=== PATIENT | female | born 1985 | race Caucasian/White ===

== ENCOUNTER → 2017-08-24 | Outpatient (CLI) | payer OTHER | END | disposition home or self-care (01) | LOC: C.PAPS 09:04 | PROVIDERS: ATTEND Obstetrics & Gynecology | DX: Z12.4 Encounter for screening for malignant neoplasm of cervix (principal) ==

== ENCOUNTER → 2017-09-06 | Outpatient (CLI) | payer OTHER ==
--- NOTE | 2017-09-06 15:17 | MAMMOGRAPHY REPORT ---
UNILATERAL LEFT DIGITAL DIAGNOSTIC MAMMOGRAM TOMOSYNTHESIS WITH CAD AND TARGETED LEFT ULTRASOUND: 09/06 CLINICAL HISTORY: The patient reports intermittent diffuse left breast pain for over one year. She a lso reports intermittent clear/milky spontaneous non-bloody left nipple discharge. She denies any pa lpable lumps or other complaints. TECHNIQUE: Breast tomosynthesis in addition to standard 2D mammography was performed. Current study was also evaluated with a Computer Aided Detection (CAD) system. Left CC and MLO 2-D and tomosynthes is images were obtained. COMPARISON: No prior exams were available for comparison. BREAST COMPOSITION: There are scattered areas of fibroglandular density in the left breast. FINDINGS: There are no suspicious masses, calcifications, or areas of architectural distortion noted in the left breast. A square marker whitney the area of most prominent pain pointed out by the patient in the left superior breast; no suspicious masses or other suspicious mammographic abnormalities are seen in this region. Targeted ultrasound was performed of the left subareolar breast. Sonographically normal tissue is se en in this region, without evidence of an intraductal mass or other suspicious sonographic abnormalit y. IMPRESSION: ACR BI-RADS CATEGORY 2: BENIGN, TARGETED ULTRASOUND ACR BI-RADS CATEGORY 2: BENIGN No suspicious mammographic or sonographic abnormality to explain intermittent left breast pain and le ft nipple discharge. There is no mammographic or targeted sonographic evidence of malignancy. Recom mend clinical follow-up for left breast symptoms, and recommend routine bilateral screening mammogram s starting at age of 40 unless otherwise clinically indicated. The patient has been verbally notified of the results. Approximately 10% of breast cancers are not detected with mammography. A negative mammographic report should not delay biopsy if a clinically suggestive mass is present. Kayleigh Hwang M.D. /:09/06/2017 10:06:58 Tube Pusher: Sadie Weldon, [facility] letter sent: Normal 07/10 BI-RADS Code: ACR BI-RADS Category 2: Benign Ultrasound BI-RADS: ACR BI-RADS Category 2: Benign
== END | disposition home or self-care (01) ==
LOC: C.MAMM 09:23
PROVIDERS: ATTEND Obstetrics & Gynecology
DX: N64.4 Mastodynia (principal); N64.52 Nipple discharge

== ENCOUNTER 2018-08-29 17:33 | Inpatient (IN) ==
[2018-08-29 19:25] LABS: Basophils # (auto) 0.01 K/uL (0-0.2); Basophils % (auto) 0.2 %; Eosinophils % (auto) 1.5 %; Hematocrit (blood only) 43.5 % (37-47); Hemoglobin 14.6 g/dL (12.0-16.0); Immature Granulocytes # (auto) 0.03 K/uL (0.00-0.02); Immature Granulocytes % (auto) 0.5 %; Lymphocytes # (auto) 2.82 K/uL (1.2-3.4); Lymphocytes % (auto) 42.4 %; Mean Corpuscular Hgb Conc 33.6 g/dL (32-36); Mean Corpuscular Volume 88.8 fL (80-100); Mean Platelet Volume 12.6 fL (7.4-10.4); Monocytes # (auto) 0.56 K/uL (0.11-0.59); Monocytes % (auto) 8.4 %; Neutrophils # (auto) 3.13 K/uL (1.4-6.5); Platelet Count 195 K/uL (130-400); RDW Coefficient of Variation 13.5 % (11.5-14.5); RDW Standard Deviation 43.9 fL (36.4-46.3); White Blood Count 6.65 K/uL (4.8-10.8)
--- NOTE | 2018-08-29 19:40 | Emergency Department Note ---
Entered by Johnathan Newell acting as a scribe for Flakito Brown MD ED Provider Note CHIEF COMPLAINT: Bradycardia HISTORY OF PRESENT ILLNESS: Patient is a 33 year old female who presents herself to ER with complaints of heart irregularity which has been going on for past few days. She has been hospitalized in [place] and [facility] for a work up for her heart and GI issues. She had nausea and vomiting but that has seemed to be controlled. She notes that prior to her hospitalization in [place] she had a heart rate that jumped up to 170, suspected as an SVT, and was given an IV medication to correct this. She is unsure of the name. She was placed on metoprolol but then this was discontinued. Within the last month she has had bilateral arm and leg numbness. She states to be complaining of bilateral chest pressure just under her clavicle. She denies any sweating and she states she is on Zofran. She also states she lost 40 pounds in the last six weeks. She states going from love to tachycardic heart rate. Prior to her discharge from [facility] earlier this week she was having episodes of bradycardia stating she would go down into the 40s. She does note that her heart rate went up above 130 last night. Pt denies LOC, visual changes, neck pain, chest pain, recent nausea, vomiting, abdominal pain, back pain, melena, hematochezia, urinary symptoms, numbness, weakness, lymphadenopathy, rash, or other complaints. REVIEW OF SYSTEMS: See HPI for pertinent positives and negatives. A total of ten systems were reviewed and were otherwise negative. PMHx/PSHx: SVT SOCIAL HISTORY: Patient lives at home. PHYSICAL EXAM: GENERAL: Awake, alert, well-appearing, in no distress HENT: Normocephalic, atraumatic. Oropharynx unremarkable. EYES: PERRL. Normal conjunctiva. Sclera non-icteric. NECK: Inspection normal. Non-tender. Supple. No nuchal rigidity. FROM. No masses. RESPIRATORY: Clear to auscultation. No wheezes. No rales. Normal respiratory effort. CARDIAC: Normal rate. Normal rhythm. No murmurs. No rubs. Extremities warm and well perfused. Pulses equal. No JVD. GI: Soft, non-distended. No tenderness to palpation. No rebound or guarding. No masses. RECTAL: Deferred. MUSCULOSKELETAL: Atraumatic. Chest examination reveals no tenderness. The back is symmetrical on inspection without obvious abnormality. There is no CVA tenderness to palpation. No joint edema. LOWER EXTREMITIES: Calves are equal size bilaterally and non-tender. No edema. No discoloration. NEURO: Normal sensorium. No sensory or motor deficits noted. SKIN: No rash or jaundice noted. EMERGENCY DEPARTMENT COURSE: 1750: Past medical records reviewed. The patient was evaluated in room A12, and a complete history and physical examination were performed. 2011: I reevaluated the patient and updated the patient on the treatment plan. 2016: I spoke with FEDERICA Faulkner, he agreed with the plan to admit the patient. I also administered the patient Tylenol. 2052: I spoke with the patient and they verbalized agreement to the treatment. The patient will be admiteed under Dr. Suarez's care, FEDERICA. MEDICAL DECISION MAKING: Prior records/ancillary studies reviewed. The patient has had an equivocal Lyme titer. Western blot was unable to be performed. Triage Nursing notes reviewed and agree them. Additional history obtained from the family. The patient's history was concerning for recent SVT, bradycardia and tachycardia. Differential diagnosis: Etiologies such as electrolyte abnormality, cardiac dysrhythmia, thyroid dysfunction, pulmonary embolism, infection, gastrointestinal, as well as others were entertained. Physical examination: As above. The patient was in a normal rhythm on my physical examination however she was noted to be moderately tachycardic upon arrival. ER treatment provided: Cardiac monitoring. IV and oral potassium. On reassessment the patient felt better. Diagnostic interpretation by me: The electrocardiogram was negative for pathologic change. The labs revealed unremarkable CBC. LFTs were elevated. The patient has a normal troponin. Her chemistry panel revealed moderate hypokalemia. Lyme titers have been normal but equivocal. Confirmation Western blot pending. The patient has moderate hypokalemia. She is having issues where she notes tachycardia and bradycardia. She denies any vomiting or diarrhea. She has elevated LFTs. I discussed further management in the hospital. The patient was in agreement. I gave my usual and customary discussion regarding this issue. Consultation: A consultation was placed with the [facility] hospitalist. The case was discussed and diagnostics were reviewed. The patient was evaluated in the ER for further treatment. IMPRESSION: Palpitations Hypokalemia Elevated LFTs Abnormal Lyme titer PLAN: Admitted The scribe's documentation has been prepared under my direction and personally reviewed by me in its entirety. I confirm that the note above accurately reflects all work, treatment, procedures, and medical decision making performed by me. Impression & Plan Palpitation, Acute hypokalemia, Elevated LFTs Past Med/Surg History Medical History Heart palpitations (Inactive) Lyme disease (Inactive) Tachycardia Family History Other Colon cancer Hodgkin lymphoma Lung cancer No significant family history Social History marital status: Current Living Situation: Family Other Information That Helps Us Care for You: No Feels Safe at Home: Yes Safety Concerns: Feels Safe At This Time Smoking Status: Never smoker Hx Alcohol Use: No Hx Substance Use: No Beliefs That Will Affect Care: None Communication Ability: Effective Results & Data Vital Signs Vital Signs - 24 hr 08/30/18 15:20 08/30/18 15:23 08/30/18 19:24 Temperature 36.7 C 36.7 C Temperature Source Oral Oral Pulse Rate 74 Pulse Rate [Finger] 73 78 Respiratory Rate 18 20 Blood Pressure [Left Arm] 100/67 116/83 Blood Pressure [Right Arm] Blood Pressure Mean [Left Arm] 78 94 Blood Pressure Mean [Right Arm] Blood Pressure Position [Left Arm] Lying Lying Blood Pressure Position [Right Arm] Pulse Oximetry 96 97 Pulse Oximetry [Middle Finger] Oxygen Delivery Method Room Air Room Air Oxygen Delivery Method [Middle Finger] 08/30/18 23:15 08/31/18 04:05 08/31/18 06:56 Temperature 36.5 C 36.4 C L 36.6 C Temperature Source Oral Oral Oral Pulse Rate Pulse Rate [Finger] 70 54 L 72 Respiratory Rate 16 16 16 Blood Pressure [Left Arm] 94/59 L 104/69 Blood Pressure [Right Arm] 103/70 Blood Pressure Mean [Left Arm] 70 80 Blood Pressure Mean [Right Arm] 81 Blood Pressure Position [Left Arm] Lying Blood Pressure Position [Right Arm] Lying Pulse Oximetry 97 97 97 Pulse Oximetry [Middle Finger] Oxygen Delivery Method Room Air Room Air Room Air Oxygen Delivery Method [Middle Finger] 08/31/18 10:00 08/31/18 11:49 Temperature 37.2 C Temperature Source Oral Pulse Rate 50 L Pulse Rate [Finger] 68 Respiratory Rate 18 Blood Pressure [Left Arm] 117/77 Blood Pressure [Right Arm] Blood Pressure Mean [Left Arm] 90 Blood Pressure Mean [Right Arm] Blood Pressure Position [Left Arm] Lying Blood Pressure Position [Right Arm] Pulse Oximetry 96 Pulse Oximetry [Middle Finger] 97 Oxygen Delivery Method Room Air Oxygen Delivery Method [Middle Finger] Room Air Home Medications Current Medication List: was personally reviewed by me Laboratory Data Attestation: I reviewed the patient's lab results. Result diagrams: 08/31/18 07:24 08/31/18 07:24 Lab Results 08/29/18 08/29/18 08/29/18 Range/Units 18:57 18:57 18:57 WBC 6.65 (4.8-10.8) K/uL RBC 4.90 (4.2-5.4) M/uL Hgb 14.6 (12.0-16.0) g/dL Hct 43.5 (37-47) % MCV 88.8 (80-100) fL MCH 29.8 (25-34) pg MCHC 33.6 (32-36) g/dL RDW Std Deviation 43.9 (36.4-46.3) fL RDW Coeff of Corazon 13.5 (11.5-14.5) % Plt Count 195 (130-400) K/uL MPV 12.6 H (7.4-10.4) fL Immature Gran % (Auto) 0.5 % Neut % (Auto) 47.0 % Lymph % (Auto) 42.4 % Slope % (Auto) 8.4 % Eos % (Auto) 1.5 % Baso % (Auto) 0.2 % Immature Gran # (Auto) 0.03 H (0.00-0.02) K/uL Neut # (Auto) 3.13 (1.4-6.5) K/uL Lymph # (Auto) 2.82 (1.2-3.4) K/uL Slope # (Auto) 0.56 (0.11-0.59) K/uL Eos # (Auto) 0.10 (0-0.5) K/uL Baso # (Auto) 0.01 (0-0.2) K/uL ESR (0-21) mm/hr PT (9.0-12.0) Seconds INR (0.9-1.1) APTT (21.0-31.0) Seconds PTT Ratio Sodium 137 (136-145) mmol/L Potassium 2.6 L (3.5-5.1) mmol/L Chloride 97 L (98-107) mmol/L Carbon Dioxide 30 (21-32) mmol/L Anion Gap 10.0 (3-11) BUN 8 (7-18) mg/dl Creatinine 0.56 L (0.6-1.2) mg/dl Est Cr Clr Drug Dosing 151.1 ml/min Est GFR ( Amer) 144.0 Est GFR (Non-Af Amer) 124.2 BUN/Creatinine Ratio 13.6 (10-20) Glucose 84 (70-99) mg/dl Calcium 8.8 (8.5-10.1) mg/dl Magnesium 1.8 (1.8-2.4) mg/dl Total Bilirubin 0.9 (0.2-1) mg/dl AST 112 H (15-37) U/L ALT 226 H (12-78) U/L Alkaline Phosphatase 84 (45-117) U/L Troponin I < 0.015 (0-0.045) ng/ml Total Protein 7.0 (6.4-8.2) gm/dl Albumin 3.3 L (3.4-5.0) gm/dl Globulin 3.7 (2.5-4.0) gm/dl Albumin/Globulin Ratio 0.9 (0.9-2) TSH 1.100 (0.300-4.500) uIu/ml Cortisol AM Sample (4.3-22.4) mcg/dl Lyme Disease IgG Ab Negative (Negative) Lyme Disease IgM Ab Equivocal H (Negative) Hep Bs Antigen (Neg) Hepatitis C Antibody (Neg) Monoscreen (Negative) 08/29/18 08/30/18 08/30/18 Range/Units 18:57 05:34 05:34 WBC (4.8-10.8) K/uL RBC (4.2-5.4) M/uL Hgb (12.0-16.0) g/dL Hct (37-47) % MCV (80-100) fL MCH (25-34) pg MCHC (32-36) g/dL RDW Std Deviation (36.4-46.3) fL RDW Coeff of Corazon (11.5-14.5) % Plt Count (130-400) K/uL MPV (7.4-10.4) fL Immature Gran % (Auto) % Neut % (Auto) % Lymph % (Auto) % Slope % (Auto) % Eos % (Auto) % Baso % (Auto) % Immature Gran # (Auto) (0.00-0.02) K/uL Neut # (Auto) (1.4-6.5) K/uL Lymph # (Auto) (1.2-3.4) K/uL Slope # (Auto) (0.11-0.59) K/uL Eos # (Auto) (0-0.5) K/uL Baso # (Auto) (0-0.2) K/uL ESR 19 (0-21) mm/hr PT (9.0-12.0) Seconds INR (0.9-1.1) APTT (21.0-31.0) Seconds PTT Ratio Sodium (136-145) mmol/L Potassium (3.5-5.1) mmol/L Chloride (98-107) mmol/L Carbon Dioxide (21-32) mmol/L Anion Gap (3-11) BUN (7-18) mg/dl Creatinine (0.6-1.2) mg/dl Est Cr Clr Drug Dosing ml/min Est GFR ( Amer) Est GFR (Non-Af Amer) BUN/Creatinine Ratio (10-20) Glucose (70-99) mg/dl Calcium (8.5-10.1) mg/dl Magnesium (1.8-2.4) mg/dl Total Bilirubin (0.2-1) mg/dl AST (15-37) U/L ALT (12-78) U/L Alkaline Phosphatase (45-117) U/L Troponin I (0-0.045) ng/ml Total Protein (6.4-8.2) gm/dl Albumin (3.4-5.0) gm/dl Globulin (2.5-4.0) gm/dl Albumin/Globulin Ratio (0.9-2) TSH (0.300-4.500) uIu/ml Cortisol AM Sample (4.3-22.4) mcg/dl Lyme Disease IgG Ab (Negative) Lyme Disease IgM Ab (Negative) Hep Bs Antigen Neg (Neg) Hepatitis C Antibody Neg (Neg) Monoscreen Negative (Negative) 08/30/18 08/30/18 08/30/18 Range/Units 05:34 05:34 05:34 WBC 5.53 (4.8-10.8) K/uL RBC 4.85 (4.2-5.4) M/uL Hgb 14.5 (12.0-16.0) g/dL Hct 43.8 (37-47) % MCV 90.3 (80-100) fL MCH 29.9 (25-34) pg MCHC 33.1 (32-36) g/dL RDW Std Deviation 44.8 (36.4-46.3) fL RDW Coeff of Corazon 13.7 (11.5-14.5) % Plt Count 185 (130-400) K/uL MPV 12.5 H (7.4-10.4) fL Immature Gran % (Auto) 0.7 % Neut % (Auto) 31.1 % Lymph % (Auto) 56.8 % Slope % (Auto) 7.2 % Eos % (Auto) 4.0 % Baso % (Auto) 0.2 % Immature Gran # (Auto) 0.04 H (0.00-0.02) K/uL Neut # (Auto) 1.72 (1.4-6.5) K/uL Lymph # (Auto) 3.14 (1.2-3.4) K/uL Slope # (Auto) 0.40 (0.11-0.59) K/uL Eos # (Auto) 0.22 (0-0.5) K/uL Baso # (Auto) 0.01 (0-0.2) K/uL ESR (0-21) mm/hr PT 11.4 (9.0-12.0) Seconds INR 1.1 (0.9-1.1) APTT 23.5 (21.0-31.0) Seconds PTT Ratio 0.9 Sodium 140 (136-145) mmol/L Potassium 3.4 L D (3.5-5.1) mmol/L Chloride 102 (98-107) mmol/L Carbon Dioxide 32 (21-32) mmol/L Anion Gap 6.0 (3-11) BUN 6 L (7-18) mg/dl Creatinine 0.57 L (0.6-1.2) mg/dl Est Cr Clr Drug Dosing 155.9 ml/min Est GFR ( Amer) 143.2 Est GFR (Non-Af Amer) 123.5 BUN/Creatinine Ratio 10.6 (10-20) Glucose 76 (70-99) mg/dl Calcium 8.2 L (8.5-10.1) mg/dl Magnesium (1.8-2.4) mg/dl Total Bilirubin 1.0 (0.2-1) mg/dl AST 103 H (15-37) U/L ALT 221 H (12-78) U/L Alkaline Phosphatase 77 (45-117) U/L Troponin I (0-0.045) ng/ml Total Protein 6.4 (6.4-8.2) gm/dl Albumin 3.0 L (3.4-5.0) gm/dl Globulin 3.4 (2.5-4.0) gm/dl Albumin/Globulin Ratio 0.9 (0.9-2) TSH (0.300-4.500) uIu/ml Cortisol AM Sample (4.3-22.4) mcg/dl Lyme Disease IgG Ab (Negative) Lyme Disease IgM Ab (Negative) Hep Bs Antigen (Neg) Hepatitis C Antibody (Neg) Monoscreen (Negative) 08/31/18 08/31/18 08/31/18 Range/Units 07:24 07:24 07:24 WBC 5.37 (4.8-10.8) K/uL RBC 4.42 (4.2-5.4) M/uL Hgb 13.1 (12.0-16.0) g/dL Hct 40.5 (37-47) % MCV 91.6 (80-100) fL MCH 29.6 (25-34) pg MCHC 32.3 (32-36) g/dL RDW Std Deviation 47.1 H (36.4-46.3) fL RDW Coeff of Corazon 14.2 (11.5-14.5) % Plt Count 167 (130-400) K/uL MPV 11.7 H (7.4-10.4) fL Immature Gran % (Auto) 0.9 % Neut % (Auto) 37.6 % Lymph % (Auto) 44.3 % Slope % (Auto) 11.2 % Eos % (Auto) 5.8 % Baso % (Auto) 0.2 % Immature Gran # (Auto) 0.05 H (0.00-0.02) K/uL Neut # (Auto) 2.02 (1.4-6.5) K/uL Lymph # (Auto) 2.38 (1.2-3.4) K/uL Slope # (Auto) 0.60 H (0.11-0.59) K/uL Eos # (Auto) 0.31 (0-0.5) K/uL Baso # (Auto) 0.01 (0-0.2) K/uL ESR (0-21) mm/hr PT 10.9 (9.0-12.0) Seconds INR 1.1 (0.9-1.1) APTT (21.0-31.0) Seconds PTT Ratio Sodium 142 (136-145) mmol/L Potassium 4.0 D (3.5-5.1) mmol/L Chloride 110 H (98-107) mmol/L Carbon Dioxide 28 (21-32) mmol/L Anion Gap 4.0 (3-11) BUN 6 L (7-18) mg/dl Creatinine 0.63 (0.6-1.2) mg/dl Est Cr Clr Drug Dosing 142.1 ml/min Est GFR ( Amer) 138.5 Est GFR (Non-Af Amer) 119.5 BUN/Creatinine Ratio 9.1 L (10-20) Glucose 91 (70-99) mg/dl Calcium 7.9 L (8.5-10.1) mg/dl Magnesium 2.2 (1.8-2.4) mg/dl Total Bilirubin 0.5 D (0.2-1) mg/dl AST 52 H (15-37) U/L ALT 165 H (12-78) U/L Alkaline Phosphatase 67 (45-117) U/L Troponin I (0-0.045) ng/ml Total Protein 5.7 L (6.4-8.2) gm/dl Albumin 2.8 L (3.4-5.0) gm/dl Globulin 2.9 (2.5-4.0) gm/dl Albumin/Globulin Ratio 1.0 (0.9-2) TSH (0.300-4.500) uIu/ml Cortisol AM Sample (4.3-22.4) mcg/dl Lyme Disease IgG Ab (Negative) Lyme Disease IgM Ab (Negative) Hep Bs Antigen (Neg) Hepatitis C Antibody (Neg) Monoscreen (Negative) 08/31/18 Range/Units 07:24 WBC (4.8-10.8) K/uL RBC (4.2-5.4) M/uL Hgb (12.0-16.0) g/dL Hct (37-47) % MCV (80-100) fL MCH (25-34) pg MCHC (32-36) g/dL RDW Std Deviation (36.4-46.3) fL RDW Coeff of Corazon (11.5-14.5) % Plt Count (130-400) K/uL MPV (7.4-10.4) fL Immature Gran % (Auto) % Neut % (Auto) % Lymph % (Auto) % Slope % (Auto) % Eos % (Auto) % Baso % (Auto) % Immature Gran # (Auto) (0.00-0.02) K/uL Neut # (Auto) (1.4-6.5) K/uL Lymph # (Auto) (1.2-3.4) K/uL Slope # (Auto) (0.11-0.59) K/uL Eos # (Auto) (0-0.5) K/uL Baso # (Auto) (0-0.2) K/uL ESR (0-21) mm/hr PT (9.0-12.0) Seconds INR (0.9-1.1) APTT (21.0-31.0) Seconds PTT Ratio Sodium (136-145) mmol/L Potassium (3.5-5.1) mmol/L Chloride (98-107) mmol/L Carbon Dioxide (21-32) mmol/L Anion Gap (3-11) BUN (7-18) mg/dl Creatinine (0.6-1.2) mg/dl Est Cr Clr Drug Dosing ml/min Est GFR ( Amer) Est GFR (Non-Af Amer) BUN/Creatinine Ratio (10-20) Glucose (70-99) mg/dl Calcium (8.5-10.1) mg/dl Magnesium (1.8-2.4) mg/dl Total Bilirubin (0.2-1) mg/dl AST (15-37) U/L ALT (12-78) U/L Alkaline Phosphatase (45-117) U/L Troponin I (0-0.045) ng/ml Total Protein (6.4-8.2) gm/dl Albumin (3.4-5.0) gm/dl Globulin (2.5-4.0) gm/dl Albumin/Globulin Ratio (0.9-2) TSH (0.300-4.500) uIu/ml Cortisol AM Sample 16.06 (4.3-22.4) mcg/dl Lyme Disease IgG Ab (Negative) Lyme Disease IgM Ab (Negative) Hep Bs Antigen (Neg) Hepatitis C Antibody (Neg) Monoscreen (Negative) Administered Medications Potassium Chloride/Sodium Chloride (Normal Saline W/20 Meq Kcl) 20 meq in 1, 000 mls @ 100 mls/hr IV .Q10H PRECIOUS Stop: 09/29/18 00:03 Last Admin: 08/31/18 08:06 Dose: 100 mls/hr Infusion: 08/31/18 08:06 Dose: 100 mls/hr Admin: 08/30/18 22:16 Dose: 100 mls/hr Infusion: 08/30/18 22:16 Dose: 100 mls/hr Admin: 08/30/18 13:25 Dose: 100 mls/hr Infusion: 08/30/18 11:57 Dose: 100 mls/hr Admin: 08/30/18 01:57 Dose: 100 mls/hr Mirtazapine (Remeron) 15 mg PO HS PRECIOUS Stop: 09/29/18 20:59 Last Admin: 08/30/18 20:08 Dose: Not Given Multivitamins (Multivitamin Tab) 1 tab PO DAILY PRECIOUS Stop: 09/29/18 08:59 Last Admin: 08/31/18 08:07 Dose: 1 tab Admin: 08/30/18 08:50 Dose: 1 tab Ondansetron HCl (Zofran) 4 mg IV Q6H PRN PRN Reason: NAUSEA/VOMITING Stop: 09/29/18 00:03 Last Admin: 08/30/18 18:22 Dose: 4 mg Admin: 08/30/18 11:58 Dose: 4 mg Pantoprazole Sodium (Protonix) 40 mg PO BID PRECIOUS Stop: 09/29/18 00:03 Last Admin: 08/31/18 08:07 Dose: 40 mg Admin: 08/30/18 20:06 Dose: 40 mg Admin: 08/30/18 08:50 Dose: 40 mg Admin: 08/30/18 00:58 Dose: 40 mg Polyethylene Glycol (Miralax Powder Packet) 17 gm PO DAILY PRN PRN Reason: Constipation Stop: 09/29/18 16:34 Last Admin: 08/30/18 16:57 Dose: 17 gm Discontinued Medications Acetaminophen (Tylenol) 1,000 mg PO NOW STA Stop: 08/29/18 20:18 Last Admin: 08/29/18 20:22 Dose: 1,000 mg Docusate Sodium (Colace) 100 mg PO NOW ONE Stop: 08/30/18 19:47 Last Admin: 08/30/18 20:07 Dose: 100 mg Potassium Chloride (K Eusebio / Wtr) 10 meq in 100 mls @ 100 mls/hr IV ONE ONE Stop: 08/29/18 21:10 Last Infusion: 08/29/18 21:37 Dose: Admin: 08/29/18 20:22 Dose: 100 mls/hr Potassium Chloride (K Eusebio / Wtr) 10 meq in 100 mls @ 100 mls/hr IV Q1H PRECIOUS Stop: 08/30/18 04:16 Last Infusion: 08/30/18 05:03 Dose: 0 mls/hr Admin: 08/30/18 03:59 Dose: 100 mls/hr Infusion: 08/30/18 03:57 Dose: 100 mls/hr Admin: 08/30/18 02:57 Dose: 100 mls/hr Infusion: 08/30/18 02:57 Dose: 100 mls/hr Admin: 08/30/18 01:57 Dose: 100 mls/hr Infusion: 08/30/18 01:54 Dose: 100 mls/hr Admin: 08/30/18 00:54 Dose: 100 mls/hr Magnesium Sulfate/Dextrose (Magnesium Sulfate / D5w) 1 gm in 100 mls @ 100 mls/ hr IV Q1H PRECIOUS Stop: 08/30/18 02:18 Last Infusion: 08/30/18 02:57 Dose: 0 mls/hr Admin: 08/30/18 01:57 Dose: 100 mls/hr Infusion: 08/30/18 01:54 Dose: 100 mls/hr Admin: 08/30/18 00:54 Dose: 100 mls/hr Potassium Chloride (Klor-Con M20) 20 meq PO NOW STA Stop: 08/29/18 20:12 Last Admin: 08/29/18 20:22 Dose: 20 meq ECG Data Attestation: I personally reviewed and interpreted this ECG as follows: Indication: bradycardia Rate (beats per minute): 84 Rhythm: other (sinus arrhythmia) Findings: + other (non specific st ); no PAC, no PVC and no ST elevation Blood Pressure Blood Pressure Findings: Low blood pressure Blood Pressure Disposition: further management by hospitalist Discharge Plan Visit Data *Final* Discharge Date/Time: 08/29/18 23:49 Chief Complaint: Bradycardia Stated Complaint: LOW HEART RATE, TINGLING-REFERRED ED Provider: Flakito Brown Discharge Problem: Palpitation, Acute hypokalemia, Elevated LFTs Patient Disposition: Admitted As Inpatient Discharge Instructions Interventions: ED Discharge Assessment Last Done: 08/29/18 23:49 The scribe's documentation has been prepared under my direction and personally reviewed by me in its entirety. I confirm that the note above accurately reflects all work, treatment, procedures, and medical decision making performed by me.
[2018-08-29 19:50] LABS: Alanine Aminotransferase 226 U/L (12-78); Albumin Level 3.3 gm/dl (3.4-5.0); Aspartate Aminotransferase 112 U/L (15-37); BUN Creatinine Ratio 13.6 (10-20); Blood Urea Nitrogen 8 mg/dl (7-18); Calcium 8.8 mg/dl (8.5-10.1); Carbon Dioxide 30 mmol/L (21-32); Chloride 97 mmol/L (98-107); Creatinine Clr Calc Pharmacy 151.1 ml/min; Est GFR (Non-African American) 124.2; Glucose 84 mg/dl (70-99); Magnesium 1.8 mg/dl (1.8-2.4); Potassium 2.6 mmol/L (3.5-5.1); Sodium 137 mmol/L (136-145)
[2018-08-29 20:00] LABS: Albumin Globulin Ratio 0.9 (0.9-2); Alkaline Phosphatase 84 U/L (45-117); Bilirubin,Total 0.9 mg/dl (0.2-1); Globulin 3.7 gm/dl (2.5-4.0); Troponin I < 0.015 ng/ml (0-0.045)
[2018-08-29] MEDS ORDERED: POTASSIUM CHLORIDE / WTR 10 MEQ/100 ML PLCT IV ONE (20:11)
[2018-08-29] MEDS ORDERED: POTASSIUM CHLORIDE 20 MEQ TABCR PO STA (20:11)
[2018-08-29] MEDS ORDERED: ACETAMINOPHEN 500 MG TAB PO STA (20:17)
[2018-08-29 20:20] LABS: Lyme Ab IgG w/WB Rflx Negative (Negative)
[2018-08-29 20:21] LABS: Lyme Ab IgM w/WB Rflx Equivocal (Negative)
--- NOTE | 2018-08-29 23:09 | History & Physical Report ---
Date of Service August 29, 2018 Assessment & Plan (1) PSVT (paroxysmal supraventricular tachycardia): She had a reported maintained HR of 170 at rest, received an unknown medication from EMS to return to normal. The patient will be admitted to telemetry for serial cardiac enzymes, serial EKG's, cardiac rhythm monitoring and a 2-D echocardiogram with Dopplers. K2.6, Mg 1.8 upon admission. Give mag sulfate 2 grams IV. Give KCl 10 MEQ riders x 5. NSS + KCl 20 MEQ at 100 mls/hr. Repeat CMP and mag levels in the am. EKG with nonspecific inferolateral changes Consult cardiology. Need to get records from [facility] and hospital in [place]. Present on Admission?: Yes (2) Elevated LFTs: AST 112, ALT 226, that were normal on 08/27. Order acute hepatitis profiles, CTD , and other viral studies. Repeat CT abdomen and pelvis to compare to previous. Consult gastroenterology. Present on Admission?: Yes (3) Acute hypokalemia: replete and recheck as above. presumptively associated with decreased overall oral intake. Present on Admission?: Yes (4) Unintentional weight loss of 10% body weight within 6 months: reports a 40 lb weight loss in the past month. metabolic workup as noted. has had significantly decreased oral intake due to persistent nausea. Present on Admission?: Yes (5) Numbness and tingling of both lower extremities: may be secondary to hypokalemia. Will order an MRI of brain to further assess for demyelinating disorder Present on Admission?: Yes (6) Generalized weakness: metabolic and radiology workup as above. Lyme testing with a single IgM band previously, and was repeated in the ED Order ehrlichiosis and anaplasmosis tests. ESR,SAMUEL, ANCA, EBV, CMV, Coxsackie B. Present on Admission?: Yes History of Present Illness Chief Complaint: The patient presents to the ED with complaint of persistent nausea, generalized arm and leg numbness, recurrent episodes of rapid heart rate , 40 lb weight loss over the past month, and progressive fatigue. Primary Care Provider: Luigi Joaquin MD The patient is a 33 yo female who presents with the above complaints. She had been transferred from [facility] to [place] last week, where her workup was unrevealing. She did see Dr. Nix, a framing mechanic at [facility], who felt that her symptoms were nutrional. She was started on a scopolamine patch, pantoprazole, mirtazapine and ondansetron to help deal with recurrent nausea and decreased oral intake. She has noticed a dry mouth as a side effect, and has not noted any improvement in her symptoms. Allergies Allergy/AdvReac Type Severity Reaction Status Date / Time bee pollen Allergy Unknown Unverified 08/29/18 18:23 Penicillins Allergy Rash Unverified 08/29/18 18:23 aspirin AdvReac Severe Vomiting Unverified 08/29/18 18:23 morphine AdvReac Vomiting Unverified 08/29/18 18:23 brazil nuts Allergy Unknown Uncoded 08/29/18 18:23 Home Medications Home Medications Medication Instructions Recorded Confirmed Type ondansetron 4 mg PO QID PRN 08/13/18 08/29/18 History acetaminophen 650 mg PO Q6H PRN 08/29/18 08/29/18 History mirtazapine 15 mg PO DAILY 08/29/18 08/29/18 History multivitamin 1 tab PO DAILY 08/29/18 08/29/18 History pantoprazole 40 mg PO BID 08/29/18 08/29/18 History scopolamine base [Transderm-Scop] 1 patch TOPICAL DIRECTED 08/29/18 08/29/18 History Past Med/Surg History Medical History Heart palpitations (Inactive) Lyme disease (Inactive) Tachycardia Social History Current Living Situation: Family Other Information That Helps Us Care for You: No Feels Safe at Home: Yes Safety Concerns: Feels Safe At This Time Smoking Status: Never smoker Hx Alcohol Use: No Hx Substance Use: No Beliefs That Will Affect Care: None Communication Ability: Effective Review of Systems The patient denies chest pain, palpitations, shortness of breath, dyspnea on exertion, cough, lower extremity swelling, sore throat, fevers, chills, sweats, nausea, vomiting, diarrhea , constipation, abdominal pain, pelvic pain, blood in urine or stool, dysuria, urinary frequency or urgency, memory loss, loss of consciousness, abnormal bruising or bleeding, imbalance, back or neck pain, or night sweats. The review of systems is otherwise negative other than for that already noted above, and at least 10 systems have been reviewed. Physical Exam 2 Vital Signs (Past 24 Hours): Last Vital Signs Temp 36.9 C 08/29/18 17:42 Pulse 66 08/29/18 22:52 Resp 16 08/29/18 22:52 BP 98/59 L 08/29/18 22:52 Pulse Ox 97 08/29/18 22:52 Physical Exam: The patient is awake, alert and oriented �3, normocephalic and atraumatic, lying in bed and in no acute distress. HEENT--PERRL, EOMI, mucous membranes and oropharynx dry, face is flushed Neck--supple. No JVD. No bruits. Thyroid normal, trachea midline, no adenopathy. Heart--normal S1 and S2. No murmurs, rubs or gallops. Lungs--clear bilaterally, no respiratory distress, no accessory muscle use. Abdomen--normal bowel sounds and soft. Nontender. Nondistended, no hernias or masses, no organomegaly. Extremities--no cyanosis or clubbing. No edema. There are good distal pulses b/ l. Dermatologic--face is flushed, skin appears dry. Neurologic--cranial nerves II through XII grossly intact. Rheumatologic--normal range of motion. Psychiatric--normal affect Results & Data Laboratory Results Laboratory Results WBC 6.65 K/uL (4.8-10.8) 08/29/18 18:57 RBC 4.90 M/uL (4.2-5.4) 08/29/18 18:57 Hgb 14.6 g/dL (12.0-16.0) 08/29/18 18:57 Hct 43.5 % (37-47) 08/29/18 18:57 MCV 88.8 fL (80-100) 08/29/18 18:57 MCH 29.8 pg (25-34) 08/29/18 18:57 MCHC 33.6 g/dL (32-36) 08/29/18 18:57 RDW Std Deviation 43.9 fL (36.4-46.3) 08/29/18 18:57 RDW Coeff of Corazon 13.5 % (11.5-14.5) 08/29/18 18:57 Plt Count 195 K/uL (130-400) 08/29/18 18:57 MPV 12.6 fL (7.4-10.4) H 08/29/18 18:57 Immature Gran % (Auto) 0.5 % 08/29/18 18:57 Neut % (Auto) 47.0 % 08/29/18 18:57 Lymph % (Auto) 42.4 % 08/29/18 18:57 [place] % (Auto) 8.4 % 08/29/18 18:57 Eos % (Auto) 1.5 % 08/29/18 18:57 Baso % (Auto) 0.2 % 08/29/18 18:57 Immature Gran # (Auto) 0.03 K/uL (0.00-0.02) H 08/29/18 18:57 Neut # (Auto) 3.13 K/uL (1.4-6.5) 08/29/18 18:57 Lymph # (Auto) 2.82 K/uL (1.2-3.4) 08/29/18 18:57 [place] # (Auto) 0.56 K/uL (0.11-0.59) 08/29/18 18:57 Eos # (Auto) 0.10 K/uL (0-0.5) 08/29/18 18:57 Baso # (Auto) 0.01 K/uL (0-0.2) 08/29/18 18:57 ESR 19 mm/hr (0-21) 08/29/18 18:57 Sodium 137 mmol/L (136-145) 08/29/18 18:57 Potassium 2.6 mmol/L (3.5-5.1) L 08/29/18 18:57 Chloride 97 mmol/L (98-107) L 08/29/18 18:57 Carbon Dioxide 30 mmol/L (21-32) 08/29/18 18:57 Anion Gap 10.0 (3-11) 08/29/18 18:57 BUN 8 mg/dl (7-18) 08/29/18 18:57 Creatinine 0.56 mg/dl (0.6-1.2) L 08/29/18 18:57 Est Cr Clr Drug Dosing 151.1 ml/min 08/29/18 18:57 Est GFR ( Amer) 144.0 08/29/18 18:57 Est GFR (Non-Af Amer) 124.2 08/29/18 18:57 BUN/Creatinine Ratio 13.6 (10-20) 08/29/18 18:57 Glucose 84 mg/dl (70-99) 08/29/18 18:57 Calcium 8.8 mg/dl (8.5-10.1) 08/29/18 18:57 Magnesium 1.8 mg/dl (1.8-2.4) 08/29/18 18:57 Total Bilirubin 0.9 mg/dl (0.2-1) 08/29/18 18:57 AST 112 U/L (15-37) H 08/29/18 18:57 ALT 226 U/L (12-78) H 08/29/18 18:57 Alkaline Phosphatase 84 U/L (45-117) 08/29/18 18:57 Troponin I < 0.015 ng/ml (0-0.045) 08/29/18 18:57 Total Protein 7.0 gm/dl (6.4-8.2) 08/29/18 18:57 Albumin 3.3 gm/dl (3.4-5.0) L 08/29/18 18:57 Globulin 3.7 gm/dl (2.5-4.0) 08/29/18 18:57 Albumin/Globulin Ratio 0.9 (0.9-2) 08/29/18 18:57 TSH 1.100 uIu/ml (0.300-4.500) 08/29/18 18:57 Lyme Disease IgG Ab Negative (Negative) 08/29/18 18:57 Lyme Disease IgM Ab Equivocal (Negative) H 08/29/18 18:57 Diagnostic Findings [place], [place] [phone] CT Scan Report Patient: KAREN GE AAdmit Date: 08/13/18 MR#: [id number]: Alona HUBBARD Acct ID:[id number]: Date: 1985[facility] Zip: [place] [address] Age: 33Location: ED Sex: F Room/Bed: Att Phy: Diagnosis: NUMB IN ARMS/FACE,NECK PAIN,NAUSEA Maricel Phy: Micheal RVCory, MDService Date: 08/13/18 Fam Phy: Interpreting Phy: Candido James MD Admit Phy: Ordering Phy: Rojas Zhao M.D. cc: ~ CT abd pelvis IV con only CLINICAL HISTORY: 33 years-old Female presenting with weight loss, decreased appetite, fam h/o cancer. TECHNIQUE: Multidetector CT of the abdomen and pelvis was performed after the administration of intravenous contrast. IV contrast: 89 mL of Optiray 320. One or more dose lowering techniques were used consistent with the principles of ALARA (as low as reasonably achievable), including automatic exposure control, mA or kV adjustment to individual patient size, and/or use of iterative reconstruction. COMPARISON: None. CT DOSE (mGy.cm): The estimated cumulative dose is 706.24 mGy.cm. 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 Lung bases: No focal infiltrate or nodule at the lung bases. Normal heart size. No pericardial or pleural effusion. Liver: Normal morphology. Vague hypodensity in the anterior inferior left hepatic lobe, possibly either retraction injury or focal fat. Patent hepatic vasculature. Biliary: No intrahepatic or extrahepatic biliary ductal dilatation. Gallbladder surgically absent. Pancreas: Normal. Spleen: Normal. Adrenal glands: Normal. Kidneys and ureters: Normal. No hydronephrosis. Bladder: Normal. Pelvic organs: Uterus and ovaries normal. Dominant right ovarian follicle. Bowel: Appendix surgically absent. No bowel obstruction. Peritoneal cavity: No free fluid or intraperitoneal gas. Lymph nodes: No enlarged lymph nodes in the abdomen or pelvis. Vasculature: Aorta and IVC patent and normal in caliber. Abdominal wall: Normal. Musculoskeletal: Normal. IMPRESSION: 1. No acute intra-abdominal pathology. No evidence of malignancy. Electronically signed by: Candido James M.D. 08/13/2018 10:33 PM Dictated: 08/13/182227 Transcribed: 08/13/182227 [place], [place] [phone] CT Scan Report Patient: KAREN GE AAdmit Date: 08/13/18 MR#: [id number]: Alona HUBBARD Acct ID:[id number]: Date: 1985[facility] Zip: [place] [address] Age: 33Location: ED Sex: F Room/Bed: Att Phy: Diagnosis: NUMB IN ARMS/FACE,NECK PAIN,NAUSEA Maricel Phy: RV. Micheal, MDService Date: 08/13/18 [facility] Phy: Interpreting Phy: Candido James MD Admit Phy: Ordering Phy: Rojas Zhao M.D. cc: ~ CT head/brain wo con CLINICAL HISTORY: 33 years-old Female presenting with numbness tingling. TECHNIQUE: Multidetector CT imaging of the head was performed without the use of intravenous contrast. IV contrast: None. One or more dose lowering techniques were used consistent with the principles of ALARA (as low as reasonably achievable), including automatic exposure control, mA or kV adjustment to individual patient size, and/or use of iterative reconstruction. COMPARISON: None. CT DOSE (mGy.cm): The estimated cumulative dose is 537.48 mGy.cm. 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 Ventricles and sulci normal in size. No hemorrhage. Brain parenchyma normal in appearance with preserved vaughan-white differentiation. No acute territorial infarct. No mass effect or midline shift. No extra-axial fluid collection. Paranasal sinuses and mastoid air cells clear. Calvarium intact. IMPRESSION: 1. No acute intracranial abnormality. Electronically signed by: Candido James M.D. 08/13/2018 10:28 PM Dictated: 08/13/182225 Transcribed: 08/13/182225 Medications Administered Home Medications Medication Instructions Recorded Confirmed ondansetron 4 mg PO QID PRN 08/13/18 08/29/18 acetaminophen 650 mg PO Q6H PRN 08/29/18 08/29/18 mirtazapine 15 mg PO DAILY 08/29/18 08/29/18 multivitamin 1 tab PO DAILY 08/29/18 08/29/18 pantoprazole 40 mg PO BID 08/29/18 08/29/18 scopolamine base [Transderm-Scop] 1 patch TOPICAL DIRECTED 08/29/18 08/29/18 Code Status & VTE Plan Code Status full code VTE Prophylaxis Plan VTE Prophylaxis will be ordered: Yes
[2018-08-30] MEDS ORDERED: PROCHLORPERAZINE 10 MG in SYRINGE 8 ML IV PRN (00:04)
[2018-08-30] MEDS: POTASSIUM CHLORIDE / WTR 10 MEQ/100 ML PLCT IV SCH ×4 (00:54→03:59)
[2018-08-30] MEDS: MAGNESIUM SULFATE / D5W 1 GM/100 ML BAG IV SCH ×2 (00:54→01:57)
[2018-08-30] MEDS: PANTOprazole 40 MG TAB PO SCH ×3 (00:58→20:06)
[2018-08-30] MEDS: NSS + 20MEQ KCL 20 MEQ/1,000 ML BAG IV SCH ×3 (01:57→22:16)
[2018-08-30 06:06] LABS: Hematocrit (blood only) 43.8 % (37-47); Hemoglobin 14.5 g/dL (12.0-16.0); Mean Corpuscular Hgb Conc 33.1 g/dL (32-36); Mean Corpuscular Volume 90.3 fL (80-100); Mean Platelet Volume 12.5 fL (7.4-10.4); Platelet Count 185 K/uL (130-400); RDW Coefficient of Variation 13.7 % (11.5-14.5); RDW Standard Deviation 44.8 fL (36.4-46.3); Red Blood Count 4.85 M/uL (4.2-5.4); White Blood Count 5.53 K/uL (4.8-10.8)
[2018-08-30 06:18] LABS: INR 1.1 (0.9-1.1); Partial Thromboplastin Ratio 0.9; Partial Thromboplastin Time 23.5 Seconds (21.0-31.0); Prothrombin Time 11.4 Seconds (9.0-12.0)
[2018-08-30 06:45] LABS: BUN Creatinine Ratio 10.6 (10-20); Calcium 8.2 mg/dl (8.5-10.1); Creatinine Clr Calc Pharmacy 155.9 ml/min; Est GFR (African American) 143.2; Est GFR (Non-African American) 123.5; Potassium 3.4 mmol/L (3.5-5.1)
[2018-08-30 06:50] LABS: Albumin Globulin Ratio 0.9 (0.9-2); Globulin 3.4 gm/dl (2.5-4.0); Total Protein 6.4 gm/dl (6.4-8.2)
--- NOTE | 2018-08-30 07:06 | CT Scan Report ---
CT SCAN OF THE ABDOMEN AND PELVIS WITHOUT CONTRAST CLINICAL HISTORY: Abnormal liver function tests. Hypokalemia. COMPARISON STUDY: 08/13/2018 TECHNIQUE: CT scan of the abdomen and pelvis was performed from the lung bases to the proximal femurs . Images are reviewed in the axial, sagittal, and coronal planes. IV contrast was not administered fo r this examination. A dose lowering technique was utilized adhering to the principles of ALARA. CT DOSE: 620.63 mGy.cm FINDINGS: Lower chest: The heart is normal in size and configuration, without pericardial effusion. The lung ba ses and pleural spaces are clear. Liver: There is a hypodensity within the medial segment the left lobe, likely representing focal fat. This remains unchanged from the prior study. Gallbladder: Surgically absent Spleen: Normal in size and attenuation. Pancreas: Unremarkable. Adrenal glands: Unremarkable. Kidneys: The unenhanced kidneys are normal in size without hydronephrosis. There is no contour deform ing renal mass lesion. No renal calculi are identified. No ureteral calculi are visualized. Bowel: There are no transition zones indicate bowel obstruction. There is no evidence of acute divert iculitis. There are no findings to indicate acute appendicitis. The appendix is not visualized with c ertainty. Peritoneum: There is no intraperitoneal free air or abdominal ascites. Vasculature: The abdominal aorta is normal in course and caliber. Adenopathy: None. Pelvic viscera: The bladder, and pelvic viscera are unremarkable. Skeletal structures: No destructive osseous lesions are seen. IMPRESSION: 1. Geographic focus of diminished attenuation within the medial segment left lobe of the liver, uncha nged from the prior study, and likely representing focal fat 2. No acute intra-abdominal or pelvic findings. No evidence of bowel obstruction. No evidence of free air. No acute inflammatory changes Electronically signed by: Chris Acuna M.D. 08/30/2018 7:04 AM
[2018-08-30 07:24] LABS: Basophils # (auto) 0.01 K/uL (0-0.2); Basophils % (auto) 0.2 %; Eosinophils # (auto) 0.22 K/uL (0-0.5); Immature Granulocytes # (auto) 0.04 K/uL (0.00-0.02); Immature Granulocytes % (auto) 0.7 %; Lymphocytes # (auto) 3.14 K/uL (1.2-3.4); Lymphocytes % (auto) 56.8 %; Monocytes % (auto) 7.2 %; Neutrophils # (auto) 1.72 K/uL (1.4-6.5); Neutrophils % (auto) 31.1 %
[2018-08-30 07:48] LABS: Hepatitis B Surface Antigen Neg (Neg)
[2018-08-30 08:16] LABS: Hepatitis C IgG 13Yrs+Old_Rflx Neg (Neg)
[2018-08-30] MEDS: MULTIVITAMIN TAB PO SCH (08:50)
--- NOTE | 2018-08-30 11:13 | Cardiology Consultation ---
Date of Consultation August 30, 2018 History of Present Illness Reason for Consultation: Paroxysmal SVT Requesting Physician: Dr. Suarez Allergies Allergy/AdvReac Type Severity Reaction Status Date / Time bee pollen Allergy Unknown Unverified 08/29/18 18:23 Penicillins Allergy Rash Unverified 08/29/18 18:23 aspirin AdvReac Severe Vomiting Unverified 08/29/18 18:23 morphine AdvReac Vomiting Unverified 08/29/18 18:23 brazil nuts Allergy Unknown Uncoded 08/29/18 18:23 Home Medications Home Medications Medication Instructions Recorded Confirmed Type ondansetron 4 mg PO QID PRN 08/13/18 08/29/18 History acetaminophen 650 mg PO Q6H PRN 08/29/18 08/29/18 History mirtazapine 15 mg PO DAILY 08/29/18 08/29/18 History multivitamin 1 tab PO DAILY 08/29/18 08/29/18 History pantoprazole 40 mg PO BID 08/29/18 08/29/18 History scopolamine base [Transderm-Scop] 1 patch TOPICAL DIRECTED 08/29/18 08/29/18 History Patient History Medical History Heart palpitations (Inactive) Lyme disease (Inactive) Tachycardia Social History Current Living Situation: Family Other Information That Helps Us Care for You: No Feels Safe at Home: Yes Safety Concerns: Feels Safe At This Time Smoking Status: Never smoker Hx Alcohol Use: No Hx Substance Use: No Beliefs That Will Affect Care: None Communication Ability: Effective Physical Exam 2 Vital Signs (Past 24 Hours): Last Vital Signs Temp 36.9 C 08/30/18 08:06 Pulse 59 L 08/30/18 08:06 Resp 18 08/30/18 08:06 BP 100/64 08/30/18 08:06 Pulse Ox 95 08/30/18 08:06 Results & Data Laboratory Results Laboratory Results WBC 5.53 K/uL (4.8-10.8) 08/30/18 05:34 RBC 4.85 M/uL (4.2-5.4) 08/30/18 05:34 Hgb 14.5 g/dL (12.0-16.0) 08/30/18 05:34 Hct 43.8 % (37-47) 08/30/18 05:34 MCV 90.3 fL (80-100) 08/30/18 05:34 MCH 29.9 pg (25-34) 08/30/18 05:34 MCHC 33.1 g/dL (32-36) 08/30/18 05:34 RDW Std Deviation 44.8 fL (36.4-46.3) 08/30/18 05:34 RDW Coeff of Corazon 13.7 % (11.5-14.5) 08/30/18 05:34 Plt Count 185 K/uL (130-400) 08/30/18 05:34 MPV 12.5 fL (7.4-10.4) H 08/30/18 05:34 Immature Gran % (Auto) 0.7 % 08/30/18 05:34 Neut % (Auto) 31.1 % 08/30/18 05:34 Lymph % (Auto) 56.8 % 08/30/18 05:34 [place] % (Auto) 7.2 % 08/30/18 05:34 Eos % (Auto) 4.0 % 08/30/18 05:34 Baso % (Auto) 0.2 % 08/30/18 05:34 Immature Gran # (Auto) 0.04 K/uL (0.00-0.02) H 08/30/18 05:34 Neut # (Auto) 1.72 K/uL (1.4-6.5) 08/30/18 05:34 Lymph # (Auto) 3.14 K/uL (1.2-3.4) 08/30/18 05:34 [place] # (Auto) 0.40 K/uL (0.11-0.59) 08/30/18 05:34 Eos # (Auto) 0.22 K/uL (0-0.5) 08/30/18 05:34 Baso # (Auto) 0.01 K/uL (0-0.2) 08/30/18 05:34 ESR 19 mm/hr (0-21) 08/29/18 18:57 PT 11.4 Seconds (9.0-12.0) 08/30/18 05:34 INR 1.1 (0.9-1.1) 08/30/18 05:34 APTT 23.5 Seconds (21.0-31.0) 08/30/18 05:34 PTT Ratio 0.9 08/30/18 05:34 Sodium 140 mmol/L (136-145) 08/30/18 05:34 Potassium 3.4 mmol/L (3.5-5.1) L D 08/30/18 05:34 Chloride 102 mmol/L (98-107) 08/30/18 05:34 Carbon Dioxide 32 mmol/L (21-32) 08/30/18 05:34 Anion Gap 6.0 (3-11) 08/30/18 05:34 BUN 6 mg/dl (7-18) L 08/30/18 05:34 Creatinine 0.57 mg/dl (0.6-1.2) L 08/30/18 05:34 Est Cr Clr Drug Dosing 155.9 ml/min 08/30/18 05:34 Est GFR ( Amer) 143.2 08/30/18 05:34 Est GFR (Non-Af Amer) 123.5 08/30/18 05:34 BUN/Creatinine Ratio 10.6 (10-20) 08/30/18 05:34 Glucose 76 mg/dl (70-99) 08/30/18 05:34 Calcium 8.2 mg/dl (8.5-10.1) L 08/30/18 05:34 Magnesium 1.8 mg/dl (1.8-2.4) 08/29/18 18:57 Total Bilirubin 1.0 mg/dl (0.2-1) 08/30/18 05:34 AST 103 U/L (15-37) H 08/30/18 05:34 ALT 221 U/L (12-78) H 08/30/18 05:34 Alkaline Phosphatase 77 U/L (45-117) 08/30/18 05:34 Troponin I < 0.015 ng/ml (0-0.045) 08/29/18 18:57 Total Protein 6.4 gm/dl (6.4-8.2) 08/30/18 05:34 Albumin 3.0 gm/dl (3.4-5.0) L 08/30/18 05:34 Globulin 3.4 gm/dl (2.5-4.0) 08/30/18 05:34 Albumin/Globulin Ratio 0.9 (0.9-2) 08/30/18 05:34 TSH 1.100 uIu/ml (0.300-4.500) 08/29/18 18:57 Lyme Disease IgG Ab Negative (Negative) 08/29/18 18:57 Lyme Disease IgM Ab Equivocal (Negative) H 08/29/18 18:57 Hep Bs Antigen Neg (Neg) 08/30/18 05:34 Hepatitis C Antibody Neg (Neg) 08/30/18 05:34 Monoscreen Negative (Negative) 08/30/18 05:34 Diagnostic Findings ECG 08/30/18: Sinus bradycardia at 48 bprm. ECG 08/29/18: Normal sinus rhythm with sinus arrhythmia. [address] abnormality.
[2018-08-30] MEDS: ONDANSETRON INJ 2 MG/ML 2 ML VIAL IV PRN ×2 (11:58→18:22)
--- NOTE | 2018-08-30 11:58 | Magnetic Resonance Report ---
MRI OF THE BRAIN WITHOUT CONTRAST CLINICAL HISTORY: Bilateral upper extremity numbness and fatigue COMPARISON STUDY: CT scan the head dated August 13, 2018 FINDINGS: Sagittal T1, axial diffusion, proton density and T2 weighted axial, coronal FLAIR, and axial T1-weigh roberto images were acquired. No intra or extra-axial mass lesions are visualized Axial diffusion-weighted images reveal no evidence of acute or subacute infarction. There is no evidence of ventricular dilatation. Proton density T2-weighted and FLAIR images reveal no significant intraparenchymal signal abnormaliti es. There are no abnormal flow voids. IMPRESSION: Normal MRI of the brain. Electronically signed by: Chris Acuna M.D. 08/30/2018 11:56 AM
--- NOTE | 2018-08-30 13:44 | Gastrointestinal Consultation ---
Date of Consultation August 30, 2018 Assessment & Plan (1) Elevated LFTs: Await rest of acute hep panel, SAMUEL,CMV, EBV, LKM, ASMA. Other viruses and med side effects also in the differntial (the latter because LFTs initially normal. Follow. n/v--EGD, GES, multiple CTs neg, trial of PPIs neg, TSH normal, 08/12/18 test neg, cortisol level 08/20 was 14 but will repeat in am. wt loss--from n/v equivocal lyme titer--per hospitalist. History of Present Illness Reason for Consultation: fatigue, wt loss, elevated LFTs Requesting Physician: DR Gonzalez Attending Physician: Meliton Matson MD History of Present Illness CC nausea and vomiting and weight loss HPI Reviewed this EMR and outside data requested with [facility] 06/18 to records present during which cortisol normal. and LFTS up ALT 141, AST 75 Mention in those records that EGD 08/16/18 bile gastritis and bx done but no report. U/S 08/20 s/p jacklyn and fatty liver. Pt states since 06/28/18 when she went to ER the first time for abd pain she has had n/v and anorexia with wt loss of about 43 lbs since then. Her abdominal discomort in epigastrium is moderate and not the rate limiting step why she cannot eat. She has been at [facility] for ER and admission with last admission there ending in transfer to [facility] for further care including gastric empty study neg per pt report. She states Dunn suspected neurologic issue. She has been out of the hospital just over a week and readmitted for heart arrythmia issues. . She has had numerous A/P CT scans essentially normal. She has been tried on Protonix, Prilosec, did not tolerate carafate or questran, scopolamine patch, mirtazepine, and zofran without clear improvement. Noted LFTS normal here 08/01 and08/12/18 and 08/14-08/17 at [facility] but bridget to ALT 141 and AST 75 08/20/18. This admit AST 112 and ALT 226 on admit. She had equivocal lyme disease titer but 2 western blots had inconclusive findings. Liver serologies ordered and back so far is monospot, hep B sAg and hep C Ab neg. Brain MRI this admit neg. A/p CT this admit left lobe liver focal fat. No change in her bowels. She has history of tachycardia and [facility] admit suggested was sinus tachycardia and had recent bradycardia possibley thought from scopolamine. Allergies Allergy/AdvReac Type Severity Reaction Status Date / Time bee pollen Allergy Unknown Unverified 08/29/18 18:23 Penicillins Allergy Rash Unverified 08/29/18 18:23 aspirin AdvReac Severe Vomiting Unverified 08/29/18 18:23 morphine AdvReac Vomiting Unverified 08/29/18 18:23 brazil nuts Allergy Unknown Uncoded 08/29/18 18:23 Home Medications Home Medications Medication Instructions Recorded Confirmed Type ondansetron 4 mg PO QID PRN 08/13/18 08/29/18 History acetaminophen 650 mg PO Q6H PRN 08/29/18 08/29/18 History mirtazapine 15 mg PO DAILY 08/29/18 08/29/18 History multivitamin 1 tab PO DAILY 08/29/18 08/29/18 History pantoprazole 40 mg PO BID 08/29/18 08/29/18 History scopolamine base [Transderm-Scop] 1 patch TOPICAL DIRECTED 08/29/18 08/29/18 History Patient History Medical History Heart palpitations (Inactive) Lyme disease (Inactive) Tachycardia Family History Other Colon cancer Hodgkin lymphoma Lung cancer No significant family history Social History marital status: Current Living Situation: Family Other Information That Helps Us Care for You: No Feels Safe at Home: Yes Safety Concerns: Feels Safe At This Time Smoking Status: Never smoker Hx Alcohol Use: No Hx Substance Use: No Beliefs That Will Affect Care: None Communication Ability: Effective Review of Systems See HPI. Otherwise 10 ROS neg Physical Exam 2 Vital Signs (Past 24 Hours): Last Vital Signs Temp 36.6 C 08/30/18 12:20 Pulse 60 08/30/18 12:20 Resp 16 08/30/18 12:20 BP 112/75 08/30/18 12:20 Pulse Ox 98 08/30/18 12:20 Constitutional: WD/WN, vitals as above Eyes: PERRL, conjunctivae normal, anicteric sclerae ENMT: external ear and nose normal, oropharynx normal Neck: trachea midline, no thyromegaly Respiratory: normal respiratory effort, lungs clear to auscultation Cardiovascular: RRR, no murmur, no edema Gastrointestinal (Abdomen): normal bowel sounds, soft, nontender, no hepatosplenomegaly Neurologic: PERRL, EOMI, accommodation nl, no face palsy, no dysarthria Psychiatric: A+Ox3, euthymic affect
--- NOTE | 2018-08-30 15:35 | Cardiology Consultation ---
Date of Consultation August 30, 2018 Assessment & Plan (1) PSVT (paroxysmal supraventricular tachycardia): Unfortunately, there are no rhythm strips available at this time to review rhythm which was concerning for SVT. She apparently had tachyarrhythmia which responded to adenosine. Recommend continued telemetry. Please try to obtain EMS records, if possible. No specific treatment warranted at this time without true diagnosis. [facility] than [facility]T. SVT episodes were reportedBy EMS, prior to hospitalization. Correct electrolyte abnormalities. (2) Tachycardia: There are reports of SVT pre-hospital by EMS but also sinus tachycardia [facility]. Continue telemetry. Correct electrolyte abnormalities. (3) Bradycardia: She is asymptomatic from bradycardia. No specific therapy warranted at this time for bradycardia, as long as she has appropriate chronotropic response to exercise. (4) Palpitation: Palpitations appear to correlate with tachy arrhythmia or sinus tachycardia. Continue to monitor. Try to obtain outside records. (5) Hypokalemia: Will defer to primary service. Replete as appropriate. (6) Unintentional weight loss of 10% body weight within 6 months: GI is following. Defer to primary service and GI for her loss of appetite , nausea, and unintentional weight loss. Disposition: I will be away from the hospital for the next several days. Please contact Dr. Reyes for any questions or concerns, especially if tachyarrhythmia is noted on telemetry or outside records are obtained. Patient care discussed with Dr. Matson of the primary hospitalist service. Thank you for allowing me to participate in the care of your patient. Please call for any other questions or concerns. Sincerely, Carroll Sigala M.D. History of Present Illness Reason for Consultation: SVT Requesting Physician: Dr. Suarez Attending Physician: Meliton Matson MD History of Present Illness Mrs. Benoit is a pleasant 33-year-old female with recent unintentional weight loss and palpitations. [facility] when she had extreme weakness and palpitations. She could not move because of weakness. EMS wasCalled and she reportedly was in SVT. She was given adenosine and she states that her heart rate improved from 170s to 120s. In [place], she was seen by Cardiology andThey felt as though the rhythm was sinus tachycardia with clear trend upward and then trend downward rather than abrupt change in the heart rate. She was eventually transferred to [place] for her GI issues. There she was told that she had bradycardia on the day of discharge, which was 3 days ago. She was hospitalized in total for 8 days. For this hospitalization, she once again had persistent nausea, extremity numbness, and rapid heart rate. She states that she once again received a medication pre-hospital by EMS and believes that it helped improve her tachycardia. She has had facial numbness as well as extremity numbness since being on a scopolamine patch which was started with [facility]. She admits that she fell yesterday due to the numbness in her legs. She estimates that she lost 43 lb unintentionally over the past 1.5 months. She has had nausea and decreased appetite. She reports having palpitations since the age of 16. She has been seen by Cardiology in [place] as an outpatient for the past year for palpitations and elevated heart rate. Her GI issues began in June of 2018. She was also noted to have elevated heart rate during [facility], and then once again later in June. She was started on metoprolol, which was later discontinued due to bradycardia. She denies syncope, near-syncope, edema, chest discomfort, melena, hematochezia , hematuria, diarrhea, or vomiting. She has a follow-up appointment in [place] with Cardiology at [facility]. Review of systems: As above. Review of systems otherwise negative/ unremarkable. Social history: She denies tobacco, alcohol, or drug abuse. She is lives at home with her and 3-year-old son. She is a [id number] mom. She is unaccompanied. Family history: Father at the age of 37 with GA and a arrhythmia. Mother had cardiac ablation (rhythm unknown). Sister with hypertension. Allergies Allergy/AdvReac Type Severity Reaction Status Date / Time bee pollen Allergy Unknown Unverified 08/29/18 18:23 Penicillins Allergy Rash Unverified 08/29/18 18:23 aspirin AdvReac Severe Vomiting Unverified 08/29/18 18:23 morphine AdvReac Vomiting Unverified 08/29/18 18:23 brazil nuts Allergy Unknown Uncoded 08/29/18 18:23 Home Medications Home Medications Medication Instructions Recorded Confirmed Type ondansetron 4 mg PO QID PRN 08/13/18 08/29/18 History acetaminophen 650 mg PO Q6H PRN 08/29/18 08/29/18 History mirtazapine 15 mg PO DAILY 08/29/18 08/29/18 History multivitamin 1 tab PO DAILY 08/29/18 08/29/18 History pantoprazole 40 mg PO BID 08/29/18 08/29/18 History scopolamine base [Transderm-Scop] 1 patch TOPICAL DIRECTED 08/29/18 08/29/18 History Patient History Medical History Heart palpitations (Inactive) Lyme disease (Inactive) Tachycardia Family History Other Colon cancer Hodgkin lymphoma Lung cancer No significant family history Social History marital status: Current Living Situation: Family Other Information That Helps Us Care for You: No Feels Safe at Home: Yes Safety Concerns: Feels Safe At This Time Smoking Status: Never smoker Hx Alcohol Use: No Hx Substance Use: No Beliefs That Will Affect Care: None Communication Ability: Effective Physical Exam 2 Vital Signs (Past 24 Hours): Last Vital Signs Temp 36.7 C 08/30/18 15:20 Pulse 73 08/30/18 15:20 Resp 18 08/30/18 15:20 BP 100/67 08/30/18 15:20 Pulse Ox 96 08/30/18 15:20 Physical Exam: Gen.: No acute distress. Alert and oriented. HEENT: Anicteric sclera. Neck: No JVD. No bruits. Normal carotid upstrokes bilaterally. Cardiac: PMI was nondisplaced. No ventricular heave. Regular rate and rhythm. Normal S1-S2. No murmurs, rubs, or gallops. Pulmonary: Clear to auscultation bilaterally without wheezes, rales, or rhonchi. Abdomen: Soft, nontender, nondistended, with normoactive bowel sounds. No bruits noted. Extremities: 2+ radial pulses bilaterally. 2+ posterior tibialis pulses bilaterally. No edema or cyanosis. Psychiatric: Affect appears appropriate. Results & Data Laboratory Results Laboratory Results - last 24 hr 08/29/18 08/29/18 08/29/18 18:57 18:57 18:57 WBC 6.65 RBC 4.90 Hgb 14.6 Hct 43.5 MCV 88.8 MCH 29.8 MCHC 33.6 RDW Std Deviation 43.9 RDW Coeff of Corazon 13.5 Plt Count 195 MPV 12.6 H Immature Gran % (Auto) 0.5 Neut % (Auto) 47.0 Lymph % (Auto) 42.4 Eagle % (Auto) 8.4 Eos % (Auto) 1.5 Baso % (Auto) 0.2 Immature Gran # (Auto) 0.03 H Neut # (Auto) 3.13 Lymph # (Auto) 2.82 Eagle # (Auto) 0.56 Eos # (Auto) 0.10 Baso # (Auto) 0.01 ESR PT INR APTT PTT Ratio Sodium 137 Potassium 2.6 L Chloride 97 L Carbon Dioxide 30 Anion Gap 10.0 BUN 8 Creatinine 0.56 L Est Cr Clr Drug Dosing 151.1 Est GFR ( Amer) 144.0 Est GFR (Non-Af Amer) 124.2 BUN/Creatinine Ratio 13.6 Glucose 84 Calcium 8.8 Magnesium 1.8 Total Bilirubin 0.9 AST 112 H ALT 226 H Alkaline Phosphatase 84 Troponin I < 0.015 Total Protein 7.0 Albumin 3.3 L Globulin 3.7 Albumin/Globulin Ratio 0.9 TSH 1.100 Lyme Disease IgG Ab Negative Lyme Disease IgM Ab Equivocal H Hep Bs Antigen Hepatitis C Antibody Monoscreen 08/29/18 08/30/18 08/30/18 18:57 05:34 05:34 WBC RBC Hgb Hct MCV MCH MCHC RDW Std Deviation RDW Coeff of Corazon Plt Count MPV Immature Gran % (Auto) Neut % (Auto) Lymph % (Auto) Eagle % (Auto) Eos % (Auto) Baso % (Auto) Immature Gran # (Auto) Neut # (Auto) Lymph # (Auto) Eagle # (Auto) Eos # (Auto) Baso # (Auto) ESR 19 PT INR APTT PTT Ratio Sodium Potassium Chloride Carbon Dioxide Anion Gap BUN Creatinine Est Cr Clr Drug Dosing Est GFR ( Amer) Est GFR (Non-Af Amer) BUN/Creatinine Ratio Glucose Calcium Magnesium Total Bilirubin AST ALT Alkaline Phosphatase Troponin I Total Protein Albumin Globulin Albumin/Globulin Ratio TSH Lyme Disease IgG Ab Lyme Disease IgM Ab Hep Bs Antigen Neg Hepatitis C Antibody Neg Monoscreen Negative 08/30/18 08/30/18 08/30/18 05:34 05:34 05:34 WBC 5.53 RBC 4.85 Hgb 14.5 Hct 43.8 MCV 90.3 MCH 29.9 MCHC 33.1 RDW Std Deviation 44.8 RDW Coeff of Corazon 13.7 Plt Count 185 MPV 12.5 H Immature Gran % (Auto) 0.7 Neut % (Auto) 31.1 Lymph % (Auto) 56.8 Eagle % (Auto) 7.2 Eos % (Auto) 4.0 Baso % (Auto) 0.2 Immature Gran # (Auto) 0.04 H Neut # (Auto) 1.72 Lymph # (Auto) 3.14 Eagle # (Auto) 0.40 Eos # (Auto) 0.22 Baso # (Auto) 0.01 ESR PT 11.4 INR 1.1 APTT 23.5 PTT Ratio 0.9 Sodium 140 Potassium 3.4 L D Chloride 102 Carbon Dioxide 32 Anion Gap 6.0 BUN 6 L Creatinine 0.57 L Est Cr Clr Drug Dosing 155.9 Est GFR ( Amer) 143.2 Est GFR (Non-Af Amer) 123.5 BUN/Creatinine Ratio 10.6 Glucose 76 Calcium 8.2 L Magnesium Total Bilirubin 1.0 AST 103 H ALT 221 H Alkaline Phosphatase 77 Troponin I Total Protein 6.4 Albumin 3.0 L Globulin 3.4 Albumin/Globulin Ratio 0.9 TSH Lyme Disease IgG Ab Lyme Disease IgM Ab Hep Bs Antigen Hepatitis C Antibody Monoscreen Diagnostic Findings Telemetry personally reviewed: Sinus rhythm with sinus bradycardia. ECGs personally reviewed: ECG 08/29/2018 at 5:49 p.m.: Sinus rhythm [address] abnormality. ECG 08/30/2018 at 6:27 a.m.: Sinus bradycardia 48 bpm. Echo 08/30/2018: Normal LV size, wall motion, systolic function. EF 60-65%. No LVH. No significant diastolic dysfunction. No significant valvular abnormalities visualized. Medications Administered Current Inpatient Medications Acetaminophen (Tylenol) 650 mg PO Q6H PRN PRN Reason: Pain Stop: 09/29/18 00:03 Potassium Chloride/Sodium Chloride (Normal Saline W/20 Meq Kcl) 20 meq in 1, 000 mls @ 100 mls/hr IV .Q10H PRECIOUS Stop: 09/29/18 00:03 Last Admin: 08/30/18 13:25 Dose: 100 mls/hr Prochlorperazine 10 mg/ (Syringe) 10 mls @ 5 mls/min IV Q6H PRN PRN Reason: Nausea And Vomiting Stop: 09/29/18 00:03 Mirtazapine (Remeron) 15 mg PO HS [facility] Stop: 09/29/18 20:59 Multivitamins (Multivitamin Tab) 1 tab PO DAILY PRECIOUS Stop: 09/29/18 08:59 Last Admin: 08/30/18 08:50 Dose: 1 tab Ondansetron HCl (Zofran) 4 mg IV Q6H PRN PRN Reason: NAUSEA/VOMITING Stop: 09/29/18 00:03 Last Admin: 08/30/18 11:58 Dose: 4 mg Pantoprazole Sodium (Protonix) 40 mg PO BID [facility] Stop: 09/29/18 00:03 Last Admin: 08/30/18 08:50 Dose: 40 mg
--- NOTE | 2018-08-30 15:38 | Hospitalist Progress Note ---
Date of Service August 30, 2018 Assessment & Plan (1) PSVT (paroxysmal supraventricular tachycardia): She had a reported maintained HR of 170 at rest, received an unknown medication from EMS to return to normal. Echo on 08/30 showed EF 60-65% with no major valvular issues or other concerns. - Cardiology consulted - Will have to monitor until event occurs inpatient. - Need to get records from [facility] (2) Elevated LFTs: AST 112, ALT 226, that were normal on 08/27. - Per livertox.gov, mirtazapine can cause elevated LFTs in up to 10% of patients , but elevations are usually modest and rarely require dose reduction or discontinuation. - Acute hepatitis profiles, CTD , and other viral studies are pending. - GI consulted - Appreciate recs (3) Acute hypokalemia: K was in low 3 range on last ED visit. On admission, K was 2.6. Presumptively associated with decreased overall oral intake, though GI will check AM cortisol to ensure it is not [place]'s disease. - Replete PRN - Follow up AM cortisol (4) Unintentional weight loss of 10% body weight within 6 months: Reports a 40 lb weight loss in the past month. Metabolic workup as noted in HPI. Has had significantly decreased oral intake due to persistent nausea. - See above plan (5) Numbness and tingling of both lower extremities: Likely secondary to hypokalemia. MRI brain on 08/29 was normal, indicating no stroke as cause of issues. - Monitor symptoms. - By 08/30, had resolved. (6) Generalized weakness: Metabolic and radiology workup as above. Lyme testing with a single IgM band previously, and was repeated in the ED. - Ehrlichiosis and anaplasmosis tests pending - ESR,SAMUEL, ANCA, EBV, CMV, Coxsackie B pending (7) DVT prophylaxis: Low risk per calculator - SCDs Subjective 33yo F w/ hx of fibromyalgia, SVT, and 6-weeks of nausea, vomiting, and weight loss who presents with recurrent episode of SVT. Patient is fairly well this morning. Denies significant n/v. Reports no fevers/ chills, chest pain, shortness of breath, abdominal pain, nausea, or vomiting. Physical Exam 2 Vital Signs (Past 24 Hours): Last Vital Signs Temp 36.7 C 08/30/18 15:20 Pulse 74 08/30/18 15:23 Resp 18 08/30/18 15:20 BP 100/67 08/30/18 15:20 Pulse Ox 96 08/30/18 15:20 Constitutional: WD/WN, vitals as above Eyes: PERRL, conjunctivae normal, anicteric sclerae ENMT: external ear and nose normal, oropharynx normal Neck: trachea midline, no thyromegaly Respiratory: normal respiratory effort, lungs clear to auscultation Cardiovascular: RRR, no murmur, no edema Gastrointestinal (Abdomen): normal bowel sounds, soft, nontender, no hepatosplenomegaly Neurologic: PERRL, EOMI, accommodation nl, no face palsy, no dysarthria Psychiatric: A+Ox3, euthymic affect
[2018-08-30] MEDS ORDERED: POLYETHYLENE (MIRALAX) 17 GM PACK PO PRN (16:35)
[2018-08-30] MEDS ORDERED: DOCUSATE SODIUM 100 MG CAP PO ONE (19:46)
[2018-08-30] MEDS: MIRTAZAPINE TAB 15 MG TAB PO SCH (20:08)
[2018-08-31 07:35] LABS: Basophils # (auto) 0.01 K/uL (0-0.2); Basophils % (auto) 0.2 %; Eosinophils # (auto) 0.31 K/uL (0-0.5); Eosinophils % (auto) 5.8 %; Hematocrit (blood only) 40.5 % (37-47); Hemoglobin 13.1 g/dL (12.0-16.0); Immature Granulocytes # (auto) 0.05 K/uL (0.00-0.02); Immature Granulocytes % (auto) 0.9 %; Lymphocytes # (auto) 2.38 K/uL (1.2-3.4); Lymphocytes % (auto) 44.3 %; Mean Corpuscular Hgb Conc 32.3 g/dL (32-36); Mean Corpuscular Volume 91.6 fL (80-100); Mean Platelet Volume 11.7 fL (7.4-10.4); Monocytes % (auto) 11.2 %; Neutrophils # (auto) 2.02 K/uL (1.4-6.5); Neutrophils % (auto) 37.6 %; Platelet Count 167 K/uL (130-400); RDW Coefficient of Variation 14.2 % (11.5-14.5); RDW Standard Deviation 47.1 fL (36.4-46.3); Red Blood Count 4.42 M/uL (4.2-5.4); White Blood Count 5.37 K/uL (4.8-10.8)
[2018-08-31 07:46] LABS: INR 1.1 (0.9-1.1); Prothrombin Time 10.9 Seconds (9.0-12.0)
[2018-08-31 08:05] LABS: Albumin Level 2.8 gm/dl (3.4-5.0); BUN Creatinine Ratio 9.1 (10-20); Calcium 7.9 mg/dl (8.5-10.1); Creatinine Clr Calc Pharmacy 142.1 ml/min; Est GFR (African American) 138.5; Est GFR (Non-African American) 119.5; Magnesium 2.2 mg/dl (1.8-2.4)
[2018-08-31] MEDS: NSS + 20MEQ KCL 20 MEQ/1,000 ML BAG IV SCH ×2 (08:06→17:33)
[2018-08-31 08:07] LABS: Bilirubin,Total 0.5 mg/dl (0.2-1); Globulin 2.9 gm/dl (2.5-4.0); Total Protein 5.7 gm/dl (6.4-8.2)
[2018-08-31] MEDS: MULTIVITAMIN TAB PO SCH (08:07)
[2018-08-31] MEDS: MIRTAZAPINE TAB 15 MG TAB PO SCH ×2 (08:07→20:32)
[2018-08-31] MEDS: PANTOprazole 40 MG TAB PO SCH ×2 (08:07→20:32)
--- NOTE | 2018-08-31 13:59 | Hospitalist Progress Note ---
Date of Service August 31, 2018 Assessment & Plan (1) PSVT (paroxysmal supraventricular tachycardia): She had a reported maintained HR of 170 at rest, received an unknown medication from EMS to return to normal. Echo on 08/30 showed EF 60-65% with no major valvular issues or other concerns. Records from [facility] indicate she had a sinus tachycardia with a warm-up and cool down phase. On telemetry here, she has had no events, other than being bradycardic overnight with stable BP. - Cardiology consulted - Will have to monitor until event occurs inpatient. (2) Elevated LFTs: AST 112, ALT 226, that were normal on 08/27. - Per livertox.gov, mirtazapine can cause elevated LFTs in up to 10% of patients , but elevations are usually modest and rarely require dose reduction or discontinuation. - Acute hepatitis profiles, CTD , and other viral studies are pending. - GI consulted - Appreciate recs - As of 08/31, LFTs were improving (3) Acute hypokalemia: K was in low 3 range on last ED visit. On admission, K was 2.6. AM Cortisol on 08/31 was 16 (normal). Presumptively associated with decreased overall oral intake. - Replete PRN - On 08/31, K had normalized to 4.0. (4) Unintentional weight loss of 10% body weight within 6 months: Reports a 40 lb weight loss in the past month. Metabolic workup as noted in HPI. Has had significantly decreased oral intake due to persistent nausea. - See above plan (5) Numbness and tingling of both lower extremities: Likely secondary to hypokalemia. MRI brain on 08/29 was normal, indicating no stroke as cause of issues. - Monitor symptoms. - By 08/30, had resolved. (6) Generalized weakness: Metabolic and radiology workup as above. Lyme testing with a single IgM band previously, and was repeated in the ED. - Ehrlichiosis and anaplasmosis tests pending - ESR,SAMUEL, ANCA, EBV, CMV, Coxsackie B pending (7) DVT prophylaxis: Low risk per calculator - SCDs Subjective 33yo F w/ hx of fibromyalgia, SVT, and 6-weeks of nausea, vomiting, and weight loss who presents with recurrent episode of SVT. Patient is so-so this morning. Reports recurrence of nausea, but no vomiting. Reports no fevers/chills, chest pain, shortness of breath, abdominal pain, nausea, or vomiting. Physical Exam 2 Vital Signs (Past 24 Hours): Last Vital Signs Temp 37.2 C 08/31/18 11:49 Pulse 68 08/31/18 11:49 Resp 18 08/31/18 11:49 BP 117/77 08/31/18 11:49 Pulse Ox 96 08/31/18 11:49 Constitutional: WD/WN, vitals as above Eyes: PERRL, conjunctivae normal, anicteric sclerae ENMT: external ear and nose normal, oropharynx normal Neck: trachea midline, no thyromegaly Respiratory: normal respiratory effort, lungs clear to auscultation Cardiovascular: RRR, no murmur, no edema Gastrointestinal (Abdomen): normal bowel sounds, soft, nontender, no hepatosplenomegaly Neurologic: PERRL, EOMI, accommodation nl, no face palsy, no dysarthria Psychiatric: A+Ox3, euthymic affect
--- NOTE | 2018-08-31 18:06 | Gastroenterology Progress Note ---
Date of Service August 31, 2018 Assessment & Plan (1) Elevated LFTs: Await rest of acute hep panel, SAMUEL,CMV, EBV, LKM, ASMA. Other viruses and med side effects also in the differntial (the latter because LFTs initially normal. More outside records available to review and LFTs were up about 08/19/18 and remeron and scopolamine pathch not started until after. So if meds are causing issue in liver the PPI or zofran could be issue. n/v--EGD, GES, multiple CTs neg, trial of PPIs neg, TSH normal, 08/12/18 test neg, cortisol level 08/20 and repeat normal. [facility] GI suggested central process and neurology there iniated testing for Neuromyelitis optica. Discussed with DR Matson that I am thinking GI etiology less likely and to pursure neuro and also ENT as she has hx of vertigo. wt loss--from n/v equivocal lyme titer--per hospitalist. Subjective cc nausea HPI Pt with continued nausea. Was able to hold some solid food down. Physical Exam 2 Vital Signs (Past 24 Hours): Last Vital Signs Temp 36.8 C 08/31/18 15:05 Pulse 65 08/31/18 15:05 Resp 16 08/31/18 15:05 BP 105/71 08/31/18 15:05 Pulse Ox 100 08/31/18 15:05 Constitutional: WD/WN, vitals as above Respiratory: normal respiratory effort, lungs clear to auscultation Cardiovascular: RRR, no murmur, no edema Gastrointestinal (Abdomen): normal bowel sounds, soft, nontender, no hepatosplenomegaly Psychiatric: A+Ox3, euthymic affect
[2018-08-31] MEDS: SCOPOLAMINE 1.5 MG TDSY TD SCH (18:16)
[2018-08-31] MEDS: CHECK SCOPOLAMINE PATCH PLACEMENT SCH (23:18)
[2018-09-01] MEDS: NSS + 20MEQ KCL 20 MEQ/1,000 ML BAG IV SCH (03:24)
[2018-09-01 05:58] LABS: Hematocrit (blood only) 39.5 % (37-47); Hemoglobin 12.8 g/dL (12.0-16.0); Mean Corpuscular Hgb Conc 32.4 g/dL (32-36); Mean Corpuscular Volume 93.2 fL (80-100); Mean Platelet Volume 12.3 fL (7.4-10.4); Platelet Count 170 K/uL (130-400); RDW Coefficient of Variation 14.4 % (11.5-14.5); RDW Standard Deviation 48.7 fL (36.4-46.3); Red Blood Count 4.24 M/uL (4.2-5.4); White Blood Count 5.55 K/uL (4.8-10.8)
[2018-09-01 06:05] LABS: INR 1.1 (0.9-1.1); Prothrombin Time 10.8 Seconds (9.0-12.0)
[2018-09-01 06:37] LABS: Albumin Level 2.6 gm/dl (3.4-5.0); BUN Creatinine Ratio 5.1 (10-20); Calcium 8.1 mg/dl (8.5-10.1); Est GFR (African American) 145.7; Est GFR (Non-African American) 125.7; Magnesium 2.2 mg/dl (1.8-2.4); Potassium 3.9 mmol/L (3.5-5.1)
[2018-09-01 06:40] LABS: Albumin Globulin Ratio 0.8 (0.9-2); Bilirubin,Total 0.5 mg/dl (0.2-1); Globulin 3.1 gm/dl (2.5-4.0); Total Protein 5.7 gm/dl (6.4-8.2)
[2018-09-01 07:15] LABS: Basophils # (auto) 0.01 K/uL (0-0.2); Basophils % (auto) 0.2 %; Eosinophils # (auto) 0.35 K/uL (0-0.5); Eosinophils % (auto) 6.3 %; Immature Granulocytes # (auto) 0.03 K/uL (0.00-0.02); Immature Granulocytes % (auto) 0.5 %; Lymphocytes # (auto) 2.94 K/uL (1.2-3.4); Neutrophils # (auto) 1.72 K/uL (1.4-6.5)
[2018-09-01] MEDS: PANTOprazole 40 MG TAB PO SCH ×2 (07:53→20:39)
[2018-09-01] MEDS: CHECK SCOPOLAMINE PATCH PLACEMENT SCH ×2 (07:54→15:39)
[2018-09-01] MEDS: MULTIVITAMIN TAB PO SCH (07:54)
--- NOTE | 2018-09-01 11:35 | Hospitalist Progress Note ---
Date of Service September 01, 2018 Assessment & Plan (1) PSVT (paroxysmal supraventricular tachycardia): She had a reported maintained HR of 170 at rest, received an unknown medication from EMS to return to normal. Echo on 08/30 showed EF 60-65% with no major valvular issues or other concerns. Records from [facility] indicate she had a sinus tachycardia with a warm-up and cool down phase. On telemetry here, she has had no events, other than being bradycardic overnight with stable BP. - Cardiology consulted - Possibly an ectopic atrial tachycardia (can also have a warm-up/cool-down phases), but without any strips or events inpatient, hard to say - Consider an event monitor. She had a 24h one previously through [facility] which only showed some bradycardia and tachycardia up to 100. (2) Elevated LFTs: AST 112, ALT 226, that were normal on 08/27. Unclear etiology as she has had normal LFTs and - Per livertox.gov, mirtazapine can cause elevated LFTs in up to 10% of patients , but elevations are usually modest and rarely require dose reduction or discontinuation. - However, has had bumps in her LFTs previously before she was on mirtazapine - Acute hepatitis profiles, CTD , and other viral studies are pending. - GI consulted - Appreciate recs - As of 09/01, LFTs were improving (3) Acute hypokalemia: K was in low 3 range on last ED visit. On admission, K was 2.6. AM Cortisol on 08/31 was 16 (normal). Presumptively associated with decreased overall oral intake. - Replete PRN - On 08/31, K had normalized to 4.0 and stayed stable afterward. (4) Unintentional weight loss of 10% body weight within 6 months: Reports a 40 lb weight loss in the past month. Metabolic workup as noted in HPI. Has had significantly decreased oral intake due to persistent nausea. - See above plan (5) Numbness and tingling of both lower extremities: Likely secondary to hypokalemia. MRI brain on 08/29 was normal, indicating no stroke as cause of issues. Discussed with Dr. Staples who felt any sort of demyelinating disease (such as neuromyelitis optica) was very unlikely given the normal MRI and lack of vision symptoms. - Monitor symptoms. - By 08/30, had resolved. (6) Generalized weakness: Metabolic and radiology workup as above. Lyme testing with a single IgM band previously, and was repeated in the ED. - Ehrlichiosis and anaplasmosis tests pending - ESR, SAMUEL, ANCA, EBV, CMV, Coxsackie B all pending (7) DVT prophylaxis: Low risk per calculator - SCDs Dispo: If she does not have an arrhythmia tonight, could likely discharge on Sunday with event monitor and follow up outpatient. Could also consider psychiatry consult as this may be somewhat functional in nature. Subjective 33yo F w/ hx of fibromyalgia, SVT, and 6-weeks of nausea, vomiting, and weight loss who presents with recurrent episode of SVT. Patient is so-so this morning. Reports continued nausea, but no vomiting. Can eat, but it takes "all she has" to clear the tray. Had episode of dizziness, but then it resolved on its own. Reports no fevers/chills, chest pain, shortness of breath, abdominal pain, nausea, or vomiting. Physical Exam 2 Vital Signs (Past 24 Hours): Last Vital Signs Temp 37.0 C 09/01/18 10:36 Pulse 65 09/01/18 10:36 Resp 18 09/01/18 10:36 BP 94/59 L 09/01/18 10:36 Pulse Ox 98 09/01/18 10:36 Constitutional: WD/WN, vitals as above Eyes: PERRL, conjunctivae normal, anicteric sclerae ENMT: external ear and nose normal, oropharynx normal Neck: trachea midline, no thyromegaly Respiratory: normal respiratory effort, lungs clear to auscultation Cardiovascular: RRR, no murmur, no edema Gastrointestinal (Abdomen): normal bowel sounds, soft, nontender, no hepatosplenomegaly Neurologic: PERRL, EOMI, accommodation nl, no face palsy, no dysarthria Psychiatric: A+Ox3, euthymic affect
--- NOTE | 2018-09-01 17:03 | Gastroenterology Progress Note ---
Date of Service September 01, 2018 Assessment & Plan (1) Elevated LFTs: Await rest of acute hep panel, SAMUEL,CMV, EBV, LKM, ASMA. Other viruses and med side effects also in the differntial (the latter because LFTs initially normal. More outside records available to review and LFTs were up about 08/19/18 and remeron and scopolamine pathch not started until after. So if meds are causing issue in liver the PPI or zofran could be issue. However, LFTS are improved which would seem less likely if meds causing. n/v--EGD, GES, multiple CTs neg, trial of PPIs neg, TSH normal, 08/12/18 test neg, cortisol level 08/20 and repeat normal. [facility] GI suggested central process and neurology there iniated testing for Neuromyelitis optica but per DR Matson neuro thinks not likely with minimal visual symptoms. wt loss--from n/v, Recommned dietitian consult to recommend boost or ensure e.g. keely should try to get 4 boost of ensure daily and whatever else she can eat is fine. Recomend calorically dense foods and eat every 2 hours rathe than try to face down 3 large meals. equivocal lyme titer--per hospitalist. Subjective cc nausea HPI Pt with continued nausea but improved on scopolamine patch. She is tolerating solid diet. Physical Exam 2 Vital Signs (Past 24 Hours): Last Vital Signs Temp 36.6 C 09/01/18 14:59 Pulse 66 09/01/18 14:59 Resp 20 09/01/18 14:59 BP 102/65 09/01/18 14:59 Pulse Ox 96 09/01/18 14:59 Constitutional: WD/WN, vitals as above Cardiovascular: RRR, no murmur, no edema Gastrointestinal (Abdomen): normal bowel sounds, soft, nontender, no hepatosplenomegaly Neurologic: PERRL, EOMI, accommodation nl, no face palsy, no dysarthria Psychiatric: A+Ox3, euthymic affect
[2018-09-01] MEDS: MIRTAZAPINE TAB 15 MG TAB PO SCH (20:39)
[2018-09-02] MEDS: CHECK SCOPOLAMINE PATCH PLACEMENT SCH ×3 (00:06→16:39)
[2018-09-02 06:06] LABS: Basophils # (auto) 0.02 K/uL (0-0.2); Basophils % (auto) 0.4 %; Eosinophils % (auto) 5.3 %; Hematocrit (blood only) 41.7 % (37-47); Hemoglobin 13.4 g/dL (12.0-16.0); Immature Granulocytes # (auto) 0.04 K/uL (0.00-0.02); Immature Granulocytes % (auto) 0.7 %; Lymphocytes # (auto) 2.79 K/uL (1.2-3.4); Lymphocytes % (auto) 48.9 %; Mean Corpuscular Hgb Conc 32.1 g/dL (32-36); Mean Corpuscular Volume 92.7 fL (80-100); Mean Platelet Volume 12.3 fL (7.4-10.4); Monocytes # (auto) 0.72 K/uL (0.11-0.59); Monocytes % (auto) 12.6 %; Neutrophils # (auto) 1.84 K/uL (1.4-6.5); Neutrophils % (auto) 32.1 %; Platelet Count 187 K/uL (130-400); RDW Coefficient of Variation 14.4 % (11.5-14.5); RDW Standard Deviation 48.8 fL (36.4-46.3); White Blood Count 5.71 K/uL (4.8-10.8)
[2018-09-02 06:40] LABS: Albumin Level 2.9 gm/dl (3.4-5.0); BUN Creatinine Ratio 3.9 (10-20); Calcium 8.3 mg/dl (8.5-10.1); Creatinine Clr Calc Pharmacy 119.3 ml/min; Est GFR (African American) 123.1; Est GFR (Non-African American) 106.2; Magnesium 2.3 mg/dl (1.8-2.4); Potassium 3.5 mmol/L (3.5-5.1)
[2018-09-02 06:44] LABS: Albumin Globulin Ratio 0.9 (0.9-2); Bilirubin,Total 0.6 mg/dl (0.2-1); Globulin 3.4 gm/dl (2.5-4.0); Phosphorus 4.1 mg/dl (2.5-4.9); Total Protein 6.3 gm/dl (6.4-8.2)
[2018-09-02] MEDS: ONDANSETRON INJ 2 MG/ML 2 ML VIAL IV PRN (07:45)
[2018-09-02] MEDS: MULTIVITAMIN TAB PO SCH (07:45)
[2018-09-02] MEDS: PANTOprazole 40 MG TAB PO SCH ×2 (07:45→22:27)
--- NOTE | 2018-09-02 12:37 | Gastroenterology Progress Note ---
Date of Service September 02, 2018 Assessment & Plan (1) Elevated LFTs: Await rest of acute hep panel, SAMUEL,CMV, EBV, LKM, ASMA. Other viruses and med side effects also in the differntial (the latter because LFTs initially normal. Per outside records, LFTs were up about 08/19/18 and remeron and scopolamine pathch not started until after. So if meds are causing issue in liver the PPI or zofran could be issue. LFTS up today but still better than day before. Await serologies before change any meds. n/v--EGD, GES, multiple CTs neg, trial of PPIs neg, TSH normal, 08/12/18 test neg, cortisol level 08/20 and repeat normal. [facility] GI suggested central process and neurology there iniated testing for Neuromyelitis optica but per DR Matson 09/01 neuro thinks not likely with minimal visual symptoms. GI workup negative. Wonder about neuro or anxiety perpetuating problem. wt loss--from n/v, Recommned dietitian consult (ordered) to recommend boost or ensure e.g. keely should try to get 4 boost of ensure daily and whatever else she can eat is fine. Recomend calorically dense foods and eat every 2 hours rather than try to face down 3 large meals. equivocal lyme titer--per hospitalist. Pt states she would like to f/u at our GI office on DC. Subjective cc nausea HPI Pt with nausea this am requiring Zofran. She did not eat breakfast but ate few bites for lunch. No abd pain. Dietitian has not seen patient today. . Physical Exam 2 Vital Signs (Past 24 Hours): Last Vital Signs Temp 37 C 09/02/18 11:29 Pulse 61 09/02/18 11:29 Resp 18 09/02/18 11:29 BP 108/72 09/02/18 11:29 Pulse Ox 98 09/02/18 11:29 Constitutional: WD/WN, vitals as above Respiratory: normal respiratory effort, lungs clear to auscultation Cardiovascular: RRR, no murmur, no edema Gastrointestinal (Abdomen): normal bowel sounds, soft, nontender, no hepatosplenomegaly Psychiatric: A+Ox3, euthymic affect
[2018-09-02 15:27] LABS: Epstein Barr Virus Early Ag Ab < 9.00 U/ML
[2018-09-02] MEDS: ACETAMINOPHEN 325 MG TAB PO PRN (16:40)
[2018-09-02] MEDS: MIRTAZAPINE TAB 15 MG TAB PO SCH (19:51)
--- NOTE | 2018-09-02 22:01 | Hospitalist Progress Note ---
Date of Service September 02, 2018 Assessment & Plan (1) PSVT (paroxysmal supraventricular tachycardia): She had a reported maintained HR of 170 at rest, received an unknown medication from EMS to return to normal. Echo on 08/30 showed EF 60-65% with no major valvular issues or other concerns. Records from [facility] indicate she had a sinus tachycardia with a warm-up and cool down phase. On telemetry here, she has had no events, other than being bradycardic overnight with stable BP. Patient has not had tachycardia during this hospital stay. D/W Dr. Reyes, patient has been sinus throughout. D/W patient may cosnider 4 week holter monitor. As noted earlier in hospital stay: - Cardiology consulted - Possibly an ectopic atrial tachycardia (can also have a warm-up/cool-down phases), but without any strips or events inpatient, hard to say - Consider an event monitor. She had a 24h one previously through [place] which only showed some bradycardia and tachycardia up to 100. (2) Elevated LFTs: AST 112, ALT 226, that were normal on 08/27. Unclear etiology as she has had normal LFTs and - Per livertox.gov, mirtazapine can cause elevated LFTs in up to 10% of patients , but elevations are usually modest and rarely require dose reduction or discontinuation. - However, has had bumps in her LFTs previously before she was on mirtazapine - Acute hepatitis profiles, CTD , and other viral studies are pending. - GI consulted - Appreciate recs GI recommended small frequent meals. Will continue to follow peripherally. (3) Acute hypokalemia: K was in low 3 range on last ED visit. On admission, K was 2.6. AM Cortisol on 08/31 was 16 (normal). Presumptively associated with decreased overall oral intake. - Replete PRN - On 08/31, K had normalized to 4.0 and stayed stable afterward. REMAINS NORMAL ON 09/03 (4) Unintentional weight loss of 10% body weight within 6 months: Reports a 40 lb weight loss in the past month. Metabolic workup as noted in HPI. Has had significantly decreased oral intake due to persistent nausea. - See above plan (5) Numbness and tingling of both lower extremities: Likely secondary to hypokalemia. MRI brain on 08/29 was normal, indicating no stroke as cause of issues. Discussed with Dr. Staples who felt any sort of demyelinating disease (such as neuromyelitis optica) was very unlikely given the normal MRI and lack of vision symptoms. - Monitor symptoms. - By 08/30, had resolved. (6) Generalized weakness: Metabolic and radiology workup as above. Lyme testing with a single IgM band previously, and was repeated in the ED. - Ehrlichiosis and anaplasmosis tests pending - ESR, SAMUEL, ANCA, EBV, CMV, Coxsackie B all pending (7) DVT prophylaxis: Low risk per calculator - SCDs Dispo:No significant arrythmia in hospital, may consider holter monitor for 4 weeks. Unsure as to cause of her nausea, may be functional. Spent 35 minutes in management of patient, included chart reviewing her past medical records. Subjective 33yo F w/ hx of fibromyalgia, SVT, and 6-weeks of nausea, vomiting, and weight loss who presents with recurrent episode of SVT. Patient reports that her worst day is today. She reports that she is continuing to have nausea and vomiting. She reports she has not been able to eat. She denies any headache at the moment, Reports no fevers/chills, chest pain, shortness of breath, abdominal pain, nausea, or vomiting. Physical Exam 2 Vital Signs (Past 24 Hours): Last Vital Signs Temp 36.9 C 09/02/18 18:54 Pulse 68 09/02/18 18:54 Resp 18 09/02/18 18:54 BP 111/75 09/02/18 18:54 Pulse Ox 97 09/02/18 18:54 Physical Exam: Constitutional: WD/WN, vitals as above Eyes: PERRL, conjunctivae normal, anicteric sclerae ENMT: external ear and nose normal, oropharynx normal Neck: trachea midline, no thyromegaly Respiratory: normal respiratory effort, lungs clear to auscultation Cardiovascular: RRR, no murmur, no edema Gastrointestinal (Abdomen): normal bowel sounds, soft, nontender, no hepatosplenomegaly Neurologic: PERRL, EOMI, accommodation nl, no face palsy, no dysarthria Psychiatric: A+Ox3, euthymic affect
[2018-09-03] MEDS: CHECK SCOPOLAMINE PATCH PLACEMENT SCH ×4 (00:10→23:49)
[2018-09-03 06:38] LABS: Basophils # (auto) 0.01 K/uL (0-0.2); Basophils % (auto) 0.2 %; Eosinophils # (auto) 0.21 K/uL (0-0.5); Eosinophils % (auto) 3.9 %; Hematocrit (blood only) 43.1 % (37-47); Hemoglobin 14.1 g/dL (12.0-16.0); Immature Granulocytes # (auto) 0.03 K/uL (0.00-0.02); Immature Granulocytes % (auto) 0.6 %; Lymphocytes # (auto) 2.68 K/uL (1.2-3.4); Lymphocytes % (auto) 49.2 %; Mean Corpuscular Hgb Conc 32.7 g/dL (32-36); Mean Corpuscular Volume 91.3 fL (80-100); Mean Platelet Volume 12.1 fL (7.4-10.4); Monocytes # (auto) 0.65 K/uL (0.11-0.59); Monocytes % (auto) 11.9 %; Neutrophils # (auto) 1.87 K/uL (1.4-6.5); Neutrophils % (auto) 34.2 %; Platelet Count 197 K/uL (130-400); RDW Coefficient of Variation 14.3 % (11.5-14.5); RDW Standard Deviation 47.9 fL (36.4-46.3); Red Blood Count 4.72 M/uL (4.2-5.4); White Blood Count 5.45 K/uL (4.8-10.8)
[2018-09-03 07:17] LABS: Albumin Level 3.1 gm/dl (3.4-5.0); BUN Creatinine Ratio 5.7 (10-20); Calcium 9.1 mg/dl (8.5-10.1); Est GFR (African American) 117.4; Est GFR (Non-African American) 101.3; Potassium 3.6 mmol/L (3.5-5.1)
[2018-09-03 07:20] LABS: Albumin Globulin Ratio 0.8 (0.9-2); Bilirubin,Total 0.6 mg/dl (0.2-1); Globulin 3.7 gm/dl (2.5-4.0); Total Protein 6.8 gm/dl (6.4-8.2)
[2018-09-03] MEDS: MULTIVITAMIN TAB PO SCH (08:09)
[2018-09-03] MEDS: PANTOprazole 40 MG TAB PO SCH ×2 (08:09→20:32)
[2018-09-03] MEDS: ACETAMINOPHEN 325 MG TAB PO PRN ×2 (14:44→20:33)
[2018-09-03] MEDS: ONDANSETRON INJ 2 MG/ML 2 ML VIAL IV PRN (15:51)
[2018-09-03] MEDS: SCOPOLAMINE 1.5 MG TDSY TD SCH (15:52)
--- NOTE | 2018-09-03 16:19 | Gastroenterology Progress Note ---
Date of Service September 03, 2018 Assessment & Plan (1) Elevated LFTs: Await rest of acute hep panel, SAMUEL,CMV, EBV, LKM, ASMA. Other viruses and med side effects also in the differntial (the latter because LFTs initially normal. Per outside records, LFTs were up about 08/19/18 and remeron and scopolamine pathch not started until after. So if meds are causing issue in liver the PPI or zofran could be issue. LFTS up some today. Acute hep panel neg. Awaitng other serologies. n/v--EGD, GES, multiple CTs neg, trial of PPIs neg, TSH normal, 08/12/18 test neg, cortisol level 08/20 and repeat normal. [facility] GI suggested central process and neurology there iniated testing for Neuromyelitis optica but per DR Matson 09/01 neuro thinks not likely with minimal visual symptoms. GI workup negative. Wonder about neuro or anxiety perpetuating problem. wt loss--from n/v, Appreciate dietitian consult. . Recomend calorically dense foods and eat every 2 hours rather than try to face down 3 large meals. REcommend calorie counts. equivocal lyme titer--per hospitalist. Pt states she would like to f/u at our GI office on DC. Subjective cc nausea HPI Pt with nausea today but ate 3 high protein drinks today and some solid food. No vomiting Physical Exam 2 Vital Signs (Past 24 Hours): Last Vital Signs Temp 36.3 C L 09/03/18 15:14 Pulse 82 09/03/18 15:14 Resp 16 09/03/18 15:14 BP 102/72 09/03/18 15:14 Pulse Ox 98 09/03/18 15:14 Constitutional: WD/WN, vitals as above Respiratory: normal respiratory effort, lungs clear to auscultation Cardiovascular: RRR, no murmur, no edema Gastrointestinal (Abdomen): normal bowel sounds, soft, nontender, no hepatosplenomegaly Psychiatric: A+Ox3, euthymic affect
[2018-09-03 16:20] LABS: 18KDIGG Band DNR (NONREACTIVE); 23KDIGG Band DNR (NONREACTIVE); 23KDIGM Band NONREACTIVE (NONREACTIVE); 28KDIGG Band DNR (NONREACTIVE); 30KDIGG Band DNR (NONREACTIVE); 39KDIGG Band DNR (NONREACTIVE); 39KDIGM Band NONREACTIVE (NONREACTIVE); 41KDIGG Band DNR (NONREACTIVE); 41KDIGM Band NONREACTIVE (NONREACTIVE); 45KDIGG Band DNR (NONREACTIVE); 58KDIGG Band DNR (NONREACTIVE); 66KDIGG Band DNR (NONREACTIVE); 93KDIGG Band DNR (NONREACTIVE); Lyme Antibodies, WB IgM NEGATIVE (NEGATIVE)
[2018-09-03 20:22] LABS: Liver,Kidney Microsome IgG Ab <=20.0 U (<=20.0)
[2018-09-03] MEDS: MIRTAZAPINE TAB 15 MG TAB PO SCH (20:30)
--- NOTE | 2018-09-03 23:27 | Hospitalist Progress Note ---
Date of Service September 03, 2018 Assessment & Plan (1) PSVT (paroxysmal supraventricular tachycardia): She had a reported maintained HR of 170 at rest, received an unknown medication from EMS to return to normal. Echo on 08/30 showed EF 60-65% with no major valvular issues or other concerns. Records from [facility] indicate she had a sinus tachycardia with a warm-up and cool down phase. On telemetry here, she has had no events, other than being bradycardic overnight with stable BP. Patient has not had tachycardia during this hospital stay, again confirmed on monitor on 09/03, sinus and sinus bradycardia when sleeping D/W Dr. Reyes, patient has been sinus throughout. D/W patient may consider 4 week holter monitor. As noted earlier in hospital stay: - Cardiology consulted - Possibly an ectopic atrial tachycardia (can also have a warm-up/cool-down phases), but without any strips or events inpatient, hard to say - Consider an event monitor. She had a 24h one previously through [place] which only showed some bradycardia and tachycardia up to 100. this issue is stable unless she had SVT while here, needs further outpatient monitoring (2) Elevated LFTs: AST 55, ALT 150, that were normal on 08/27. Unclear etiology as she has had normal LFTs and - Per livertox.gov, mirtazapine can cause elevated LFTs in up to 10% of patients, but elevations are usually modest and rarely require dose reduction or discontinuation. - However, has had bumps in her LFTs previously before she was on mirtazapine - Acute hepatitis profiles, CTD , and other viral studies are pending. - GI consulted - Appreciate recs GI recommended small frequent meals. Will continue to follow peripherally. (3) Acute hypokalemia: K was in low 3 range on last ED visit. On admission, K was 2.6. AM Cortisol on 08/31 was 16 (normal). Presumptively associated with decreased overall oral intake. - Replete PRN - On 08/31, K had normalized to 4.0 and stayed stable afterward. REMAINS NORMAL ON 09/03 (4) Unintentional weight loss of 10% body weight within 6 months: Reports a 40 lb weight loss in the past month. Metabolic workup as noted in HPI. Has had significantly decreased oral intake due to persistent nausea. - See above plan (5) Numbness and tingling of both lower extremities: Likely secondary to hypokalemia. MRI brain on 08/29 was normal, indicating no stroke as cause of issues. Discussed with Dr. Staples who felt any sort of demyelinating disease (such as neuromyelitis optica) was very unlikely given the normal MRI and lack of vision symptoms. - Monitor symptoms. - By 08/30, had resolved. no need for inpatient neurology consult (6) Generalized weakness: Metabolic and radiology workup as above. Lyme testing with a single IgM band previously, and was repeated in the ED. - Ehrlichiosis and anaplasmosis tests pending - ESR, SAMUEL, ANCA, EBV, CMV, Coxsackie B all pending (7) DVT prophylaxis: Low risk per calculator - SCDs Dispo:No significant arrythmia in hospital, may consider holter monitor for 4 weeks. Unsure as to cause of her nausea, may be functional. look for improvement in GI symptoms and try to d/c to home with GI follow up with [facility] and Holter monitor, cardiology follow up Subjective patient laying in bed, appears worn out and fatigued said she had a terrible day, really tired, not sure why said she walked two laps around RN station and it was too much for her, needed to rest reviewed monitor with tech, no SVT since admission, past 24 hours sinus rhythm and sinu bradycardia when sleeping no chest pain, no palpitations the patient wanted to see loan documentation specialist per recommendation of Dr. Sigala explained that she had not had any SVT but could ask either Dr. Reyes or Dr. Huerta to see her if they have time discussed GI work up, appreciate notes from [facility] awaiting serology studies she already had an extensive work up at [facility] [place] she was questioning a neurologic disorder since this was brought up in [facility] she said she had not seen a neurologist she was concerned about her thyroid, discussed that TSH normal, no nodules on exam discussed that US not needed, that it would not cause dysphagia asked about other endocrine issues, she says she has one or two menstrual cycles a year, she has infertility issues, requires progesterone injections follows with [facility] gynecology reviewed labs, LFT slowly improving Review of Systems All systems reviewed & are unremarkable except as noted in HPI & below Constitutional: + fatigue and + weakness; no fever and no sweats Gastrointestinal: + abdominal pain and + nausea; no vomiting, no constipation and no diarrhea/loose stools Physical Exam Vital Signs (Past 24 Hours): Last Vital Signs Temp 36.9 C 09/03/18 19:13 Pulse 69 09/03/18 19:13 Resp 16 09/03/18 19:13 BP 108/76 09/03/18 19:13 Pulse Ox 95 09/03/18 19:13 Constitutional: WD/WN, vitals as above Eyes: PERRL, conjunctivae normal, anicteric sclerae ENMT: external ear and nose normal, oropharynx normal Neck: trachea midline, no thyromegaly Respiratory: normal respiratory effort, lungs clear to auscultation Cardiovascular: RRR, no murmur, no edema Gastrointestinal (Abdomen): normal bowel sounds, soft, nontender, no hepatosplenomegaly Musculoskeletal: no cyanosis or clubbing, extremities motor strength 5/5 Skin: no rashes, warm and dry Neurologic: patellar DTR's 2+ bilat, sensation intact and PERRL, EOMI, accommodation nl, no face palsy, no dysarthria Psychiatric: A+Ox3, euthymic affect Lymphatic: no cervical or axillary lymphadenopathy Results & Data Laboratory Results Laboratory Results - last 24 hr 08/29/18 08/30/18 09/04/18 18:57 05:34 07:57 WBC 4.61 L RBC 4.92 Hgb 15.1 Hct 45.7 MCV 92.9 MCH 30.7 MCHC 33.0 RDW Std Deviation 48.0 H RDW Coeff of Corazon 14.2 Plt Count 193 MPV 12.0 H Immature Gran % (Auto) 0.2 Neut % (Auto) 47.4 Lymph % (Auto) 36.2 Casey % (Auto) 13.2 Eos % (Auto) 2.6 Baso % (Auto) 0.4 Immature Gran # (Auto) 0.01 Neut # (Auto) 2.18 Lymph # (Auto) 1.67 Casey # (Auto) 0.61 H Eos # (Auto) 0.12 Baso # (Auto) 0.02 Anti-Smooth Muscle Ab LESS THAN 1:20 Liver/Kid Microsomes Ab <=20.0 Lyme IgG (Western Blot) SEE NOTE Lyme IgG 18 kDa Band DNR Lyme IgG 23 kDa Band DNR Lyme IgG 28 kDa Band DNR Lyme IgG 30 kDa Band DNR Lyme IgG 39 kDa Band DNR Lyme IgG 41 kDa Band DNR Lyme IgG 45 kDa Band DNR Lyme IgG 58 kDa Band DNR Lyme IgG 66 kDa Band DNR Lyme IgG 93 kDa Band DNR Lyme IgM (Western Blot) NEGATIVE Lyme IgM 23 kDa Band NONREACTIVE Lyme IgM 39 kDa Band NONREACTIVE Lyme IgM 41 kDa Band NONREACTIVE Medications Administered Current Inpatient Medications Acetaminophen (Tylenol) 650 mg PO Q6H PRN PRN Reason: Pain Stop: 09/29/18 00:03 Last Admin: 09/03/18 20:33 Dose: 650 mg Documented by: Prochlorperazine 10 mg/ (Syringe) 10 mls @ 5 mls/min IV Q6H PRN PRN Reason: Nausea And Vomiting Stop: 09/29/18 00:03 Mirtazapine (Remeron) 15 mg PO HS [facility] Stop: 09/29/18 20:59 Last Admin: 09/03/18 20:30 Dose: Not Given Documented by: Miscellaneous (Check Scopolamine Patch Placement) 1 ea N/A QS [facility] Stop: 10/01/18 00:00 Last Admin: 09/04/18 07:49 Dose: 1 ea Documented by: Miscellaneous (Remove Transderm-Scop Patch) 1 ea N/A Q72H PRECIOUS Stop: 10/03/18 17:41 Last Admin: 09/03/18 15:52 Dose: Not Given Documented by: Multivitamins (Multivitamin Tab) 1 tab PO DAILY PRECIOUS Stop: 09/29/18 08:59 Last Admin: 09/04/18 07:49 Dose: 1 tab Documented by: Ondansetron HCl (Zofran) 4 mg IV Q6H PRN PRN Reason: NAUSEA/VOMITING Stop: 09/29/18 00:03 Last Admin: 09/03/18 15:51 Dose: 4 mg Documented by: Pantoprazole Sodium (Protonix) 40 mg PO BID PRECIOUS Stop: 09/29/18 00:03 Last Admin: 09/04/18 07:49 Dose: 40 mg Documented by: Polyethylene Glycol (Miralax Powder Packet) 17 gm PO DAILY PRN PRN Reason: Constipation Stop: 09/29/18 16:34 Last Admin: 08/30/18 16:57 Dose: 17 gm Documented by: Scopolamine (Transderm-Scop) 1.5 mg TD Q72H PRECIOUS Stop: 09/30/18 17:44 Last Admin: 09/03/18 15:52 Dose: 1.5 mg Documented by:
[2018-09-04] MEDS: MULTIVITAMIN TAB PO SCH (07:49)
[2018-09-04] MEDS: CHECK SCOPOLAMINE PATCH PLACEMENT SCH ×2 (07:49→16:37)
[2018-09-04] MEDS: PANTOprazole 40 MG TAB PO SCH ×2 (07:49→19:59)
[2018-09-04 08:19] LABS: Basophils # (auto) 0.02 K/uL (0-0.2); Basophils % (auto) 0.4 %; Eosinophils # (auto) 0.12 K/uL (0-0.5); Eosinophils % (auto) 2.6 %; Hematocrit (blood only) 45.7 % (37-47); Hemoglobin 15.1 g/dL (12.0-16.0); Immature Granulocytes # (auto) 0.01 K/uL (0.00-0.02); Immature Granulocytes % (auto) 0.2 %; Lymphocytes # (auto) 1.67 K/uL (1.2-3.4); Lymphocytes % (auto) 36.2 %; Mean Corpuscular Volume 92.9 fL (80-100); Monocytes # (auto) 0.61 K/uL (0.11-0.59); Monocytes % (auto) 13.2 %; Neutrophils # (auto) 2.18 K/uL (1.4-6.5); Neutrophils % (auto) 47.4 %; Platelet Count 193 K/uL (130-400); RDW Coefficient of Variation 14.2 % (11.5-14.5); Red Blood Count 4.92 M/uL (4.2-5.4); White Blood Count 4.61 K/uL (4.8-10.8)
[2018-09-04 08:53] LABS: Albumin Globulin Ratio 0.9 (0.9-2); Albumin Level 3.4 gm/dl (3.4-5.0); BUN Creatinine Ratio 7.4 (10-20); Bilirubin,Total 0.7 mg/dl (0.2-1); Calcium 9.1 mg/dl (8.5-10.1); Creatinine Clr Calc Pharmacy 111.1 ml/min; Est GFR (African American) 113.9; Est GFR (Non-African American) 98.2; Globulin 3.9 gm/dl (2.5-4.0); Potassium 4.4 mmol/L (3.5-5.1); Total Protein 7.3 gm/dl (6.4-8.2)
[2018-09-04] MEDS: DOCUSATE SODIUM 100 MG CAP PO SCH ×2 (14:28→19:57)
--- NOTE | 2018-09-04 14:35 | Gastroenterology Progress Note ---
Date of Service September 04, 2018 Assessment & Plan (1) Elevated LFTs: Acute hep panel neg, SAMUEL,CMV pending , EBV past disease,, LKM, neg, ASMA neg Other viruses and med side effects also in the differntial (the latter because LFTs initially normal. Per outside records, LFTs were up about 08/19/18 and remeron and scopolamine pathch not started until after. So if meds are causing issue in liver the PPI or zofran could be issue. LFTS better today. n/v--EGD, GES, multiple CTs neg, trial of PPIs neg, TSH normal, 08/12/18 test neg, cortisol level 08/20 and repeat normal. [facility], operated by [facility] GI suggested central process and neurology there iniated testing for Neuromyelitis optica but per DR Matson 09/01 neuro thinks not likely with minimal visual symptoms. GI workup negative. Wonder about neuro or anxiety perpetuating problem. wt loss--from n/v, Appreciate dietitian consult. . Recomend calorically dense foods and eat every 2 hours rather than try to face down 3 large meals. Calorie counts pending equivocal lyme titer--per hospitalist. chest pain with activity per hospitalist Pt states she would like to f/u at our GI office on DC. Subjective cc nausea HPI No vomiting and no abd pain. Still with nausea but is eating Boost and solid food. Cell counts in progress Respiratory: no dyspnea Cardiovascular: + chest pain with activity Physical Exam Vital Signs (Past 24 Hours): Last Vital Signs Temp 36.4 C L 09/04/18 10:58 Pulse 84 09/04/18 10:58 Resp 18 09/04/18 10:58 BP 115/80 09/04/18 10:58 Pulse Ox 96 09/04/18 10:58 Constitutional: WD/WN, vitals as above Respiratory: normal respiratory effort, lungs clear to auscultation Cardiovascular: RRR, no murmur, no edema Gastrointestinal (Abdomen): normal bowel sounds, soft, nontender, no hepatosplenomegaly Psychiatric: A+Ox3, euthymic affect
--- NOTE | 2018-09-04 17:29 | Hospitalist Progress Note ---
Date of Service September 04, 2018 Assessment & Plan (1) Generalized weakness: (2) Numbness and tingling of both lower extremities: (3) Nausea: (4) PSVT (paroxysmal supraventricular tachycardia): (5) Palpitation: (6) Acute hypokalemia: (7) Elevated LFTs: 33 yo admiited on 08/10/2018 because of tachycardia and hypokalemia, PSVT (paroxysmal supraventricular tachycardia): Per report, she has HR of 170 at rest, received an unknown medication from EMS to return to normal. Echo on 08/30 showed EF 60-65% with no major valvular issues or other concerns. R Records from [facility] indicate she had a sinus tachycardia with a warm-up and cool down phase. On telemetry here, she has had no events, Today she insisted to be seen by EP outpatient interviewing clerk, Dr. Allen kindly agreed to see As noted earlier in hospital stay: Cardiology consulted - Possibly an ectopic atrial tachycardia (can also have a warm-up/cool-down phases), but without any strips or events inpatient, hard to say Consider an event monitor. She had a 24h one previously through [facility] which only showed some bradycardia and tachycardia up to 100. Elevated LFTs: Has been stable since admission, Unclear etiology as she has had normal LFTs nausea, GI input appreciated, acute hep panel neg, SAMUEL,CMV pending , EBV past disease,, LKM, neg, ASMA neg Other viruses and med side effects also in the differntial (the latter because LFTs initially normal. Per outside records, LFTs were up about 08/19/18 and remeron and scopolamine pathch not started until after. So if meds are causing issue in liver the PPI or zofran could be issue. LFTS better today. n/v--EGD, GES, multiple CTs neg, trial of PPIs neg, TSH normal, 08/12/18 test neg, cortisol level 08/20 and repeat normal. [facility] suggested central process and neurology there iniated testing for Neuromyelitis optica but per DR Matson 09/01 neuro thinks not likely with minimal visual symptoms. GI workup negative. wt loss--from n/v, Appreciate dietitian consult. . Recomend calorically dense foods and eat every 2 hours rather than try to face down 3 large meals. Calorie counts pending Pt states she would like to f/u at our GI office on DC. Acute hypokalemia upon admission, resolved and follow-up Numbness and tingling of both lower extremities upon admission, Likely secondary to hypokalemia. She has no such complaints today MRI brain on 08/29 was normal, indicating no stroke as cause of issues. Per note, Dr. Staples who felt any sort of demyelinating disease (such as neuromyelitis optica) was very unlikely given the normal MRI and lack of vision symptoms. Generalized weakness: Metabolic and radiology workup as above. Lyme testing with a single IgM band previously, and was repeated in the ED. Ehrlichiosis and anaplasmosis tests pending ESR, SAMUEL, ANCA, EBV, CMV, Coxsackie B all pending DVT prophylaxis: Low risk per calculator - SCDs Increase activity, possible discharge home tomorrow Subjective patient laying in bed, generally feeling good, mild nausea lesions, has no out of bed and walk yet, reviewed monitor with tech, no SVT since admission, Review of Systems Constitutional: Positive weakness, or fatigue Respiratory: no cough, sputum, wheezing, or dyspnea on exertion Cardiac: No chest pain, No orthopnea, No PND, No claudication, No palpitations, Abdomen: No pain, No vomiting, No diarrhea, Musculoskeletal: No joint pain, No muscle pain, No swelling, No calf pain, No problem reported : No dysuria, No urinary frequency, No incontinence, No hematuria Neurologic: No paralysis, No weakness, No numbness/tingling, No vertigo, No ba cole problems Psychiatric: No depression symptoms, No anhedonism, No anxiety, Heme: No abnormal bleeding/bruising, No clotting problems, Skin: No rash, No itch, No new/changing skin lesions, No color change, No bleeding Constitutional: + fatigue and + weakness; no fever and no sweats Gastrointestinal: + abdominal pain and + nausea; no vomiting, no constipation and no diarrhea/loose stools Physical Exam Vital Signs (Past 24 Hours): Last Vital Signs Temp 36.7 C 09/04/18 15:04 Pulse 80 09/04/18 15:04 Resp 18 09/04/18 15:04 BP 112/74 09/04/18 15:04 Pulse Ox 97 09/04/18 15:04 Physical Exam: General Appearance: Pleasant, WD/WN, no apparent distress, Eyes: normal inspection, PERRL, EOMI, sclerae normal ENT: normal ENT inspection, hearing grossly normal, pharynx normal Neck: supple, no adenopathy, thyroid normal, no JVD, no carotid bruits, trachea midline Respiratory/Chest: chest non-tender, normal breath sounds, no respiratory distress, no accessory muscle use, breath sounds, rales, wheezing Cardiovascular: regular rate, rhythm, no JVD, no murmur Abdomen: normal bowel sounds, non tender, soft, no organomegaly, Extremities: normal range of motion, non-tender, normal inspection, no pedal edema, no calf tenderness, normal capillary refill, pelvis stable, joint has no limited range of motion, capillary refill is normal, no cyanosis clubbing Neurologic/Psychiatric: hospital ward clerk II-XII nml as tested, no motor/sensory deficits, alert, normal mood/affect, oriented x 3 Skin: normal color, warm/dry, no rash Lymphatic: no adenopathy Results & Data Laboratory Results Laboratory Results - last 24 hr 08/30/18 09/04/18 09/04/18 05:34 07:57 07:57 WBC 4.61 L RBC 4.92 Hgb 15.1 Hct 45.7 MCV 92.9 MCH 30.7 MCHC 33.0 RDW Std Deviation 48.0 H RDW Coeff of Corazon 14.2 Plt Count 193 MPV 12.0 H Immature Gran % (Auto) 0.2 Neut % (Auto) 47.4 Lymph % (Auto) 36.2 [place] % (Auto) 13.2 Eos % (Auto) 2.6 Baso % (Auto) 0.4 Immature Gran # (Auto) 0.01 Neut # (Auto) 2.18 Lymph # (Auto) 1.67 [place] # (Auto) 0.61 H Eos # (Auto) 0.12 Baso # (Auto) 0.02 Sodium 137 Potassium 4.4 D Chloride 103 Carbon Dioxide 29 Anion Gap 4.0 BUN 6 L Creatinine 0.80 Est Cr Clr Drug Dosing 111.1 Est GFR ( Amer) 113.9 Est GFR (Non-Af Amer) 98.2 BUN/Creatinine Ratio 7.4 L Glucose 84 Calcium 9.1 Total Bilirubin 0.7 AST 47 H ALT 140 H Alkaline Phosphatase 80 Total Protein 7.3 Albumin 3.4 Globulin 3.9 Albumin/Globulin Ratio 0.9 Specimen Hemolysis Anti-Smooth Muscle Ab LESS THAN 1:20 Liver/Kid Microsomes Ab <=20.0
[2018-09-04] MEDS: MIRTAZAPINE TAB 15 MG TAB PO SCH (19:56)
[2018-09-05] MEDS: CHECK SCOPOLAMINE PATCH PLACEMENT SCH ×2 (01:35→08:18)
[2018-09-05] MEDS: ACETAMINOPHEN 325 MG TAB PO PRN (05:36)
[2018-09-05 05:49] LABS: Basophils # (auto) 0.02 K/uL (0-0.2); Basophils % (auto) 0.3 %; Eosinophils # (auto) 0.14 K/uL (0-0.5); Eosinophils % (auto) 2.2 %; Hematocrit (blood only) 44.7 % (37-47); Hemoglobin 14.6 g/dL (12.0-16.0); Immature Granulocytes # (auto) 0.04 K/uL (0.00-0.02); Immature Granulocytes % (auto) 0.6 %; Lymphocytes # (auto) 2.46 K/uL (1.2-3.4); Lymphocytes % (auto) 38.7 %; Mean Corpuscular Hgb Conc 32.7 g/dL (32-36); Mean Corpuscular Volume 92.4 fL (80-100); Mean Platelet Volume 11.6 fL (7.4-10.4); Monocytes # (auto) 0.71 K/uL (0.11-0.59); Monocytes % (auto) 11.2 %; Neutrophils # (auto) 2.98 K/uL (1.4-6.5); Platelet Count 207 K/uL (130-400); RDW Coefficient of Variation 14.2 % (11.5-14.5); RDW Standard Deviation 48.1 fL (36.4-46.3); Red Blood Count 4.84 M/uL (4.2-5.4); White Blood Count 6.35 K/uL (4.8-10.8)
[2018-09-05 06:34] LABS: Albumin Level 3.3 gm/dl (3.4-5.0); BUN Creatinine Ratio 7.2 (10-20); Calcium 8.6 mg/dl (8.5-10.1); Creatinine Clr Calc Pharmacy 109.9 ml/min; Est GFR (African American) 113.9; Est GFR (Non-African American) 98.2; Potassium 3.7 mmol/L (3.5-5.1)
[2018-09-05 06:35] LABS: Albumin Globulin Ratio 0.9 (0.9-2); Bilirubin,Total 0.6 mg/dl (0.2-1); Globulin 3.8 gm/dl (2.5-4.0); Total Protein 7.1 gm/dl (6.4-8.2)
[2018-09-05] MEDS: DOCUSATE SODIUM 100 MG CAP PO SCH (08:17)
[2018-09-05] MEDS: MULTIVITAMIN TAB PO SCH (08:17)
[2018-09-05] MEDS: PANTOprazole 40 MG TAB PO SCH (08:17)
--- NOTE | 2018-09-05 12:22 | Cardiology Progress Note ---
Date of Service September 05, 2018 Assessment & Plan (1) PSVT (paroxysmal supraventricular tachycardia): No definite tachyarrhythmia identified on current monitoring. She has had some palpitations since admission, but no sustained episodes by report. We discussed options for evaluation. If she is to be discharged we can continue monitoring her in the outpatient setting with a 30 day event monitor. Additionally, I will attempt to obtain the actual tracings of any prior evaluations she has had either an hospital or as an outpatient. Regardless of the true etiology for her symptoms of palpitation, this is not likely to be a life-threatening issue. She may have an ectopic atrial tachycardia, inappropriate sinus tachycardia or even a reentrant rhythm, none of which pose a danger to her health. I believe she can be safely discharged from a cardiac standpoint with follow-up in the outpatient setting. (2) Tachycardia: There are reports of SVT pre-hospital by EMS but also sinus tachycardia by Cardiology at [facility]. Continue telemetry. Correct electrolyte abnormalities. (3) Bradycardia: She is asymptomatic from bradycardia. No specific therapy warranted at this time for bradycardia, as long as she has appropriate chronotropic response to exercise. (4) Palpitation: Palpitations appear to correlate with tachy arrhythmia or sinus tachycar channing. Continue to monitor. Try to obtain outside records. (5) Hypokalemia: Will defer to primary service. Replete as appropriate. (6) Unintentional weight loss of 10% body weight within 6 months: GI workup continues. She seems to be tolerating a regular diet. Subjective Currently the patient claims to be feeling well. She has been ambulatory in this tolerating a diet. She did not report any episodes of palpitations recently. Physical Exam Vital Signs (Past 24 Hours): Last Vital Signs Temp 36.7 C 09/05/18 11:53 Pulse 94 H 09/05/18 11:53 Resp 19 09/05/18 11:53 BP 111/81 09/05/18 11:53 Pulse Ox 96 09/05/18 11:53 Physical Exam: She is alert and oriented x3. Mood affect appear normal. She answered all questions appropriately. HEENT: Sclerae are anicteric. Pupils are equal and reactive to light and accommodation. Extraocular movements were intact. Neuro: Cranial nerves intact Extremities: There is no evidence cyanosis or clubbing. There was no evidence of significant peripheral edema bilaterally. Skin: There are no rashes noted on examination today. Results & Data Laboratory Results Abnormal Lab Results 09/05/18 09/05/18 05:23 05:23 WBC 6.35 RBC 4.84 Hgb 14.6 Hct 44.7 MCV 92.4 MCH 30.2 MCHC 32.7 RDW Std Deviation 48.1 H RDW Coeff of Corazon 14.2 Plt Count 207 MPV 11.6 H Immature Gran % (Auto) 0.6 Neut % (Auto) 47.0 Lymph % (Auto) 38.7 [place] % (Auto) 11.2 Eos % (Auto) 2.2 Baso % (Auto) 0.3 Immature Gran # (Auto) 0.04 H Neut # (Auto) 2.98 Lymph # (Auto) 2.46 [place] # (Auto) 0.71 H Eos # (Auto) 0.14 Baso # (Auto) 0.02 Sodium 138 Potassium 3.7 D Chloride 103 Carbon Dioxide 28 Anion Gap 7.0 BUN 6 L Creatinine 0.80 Est Cr Clr Drug Dosing 109.9 Est GFR ( Amer) 113.9 Est GFR (Non-Af Amer) 98.2 BUN/Creatinine Ratio 7.2 L Glucose 86 Calcium 8.6 Total Bilirubin 0.6 AST 34 ALT 115 H Alkaline Phosphatase 77 Total Protein 7.1 Albumin 3.3 L Globulin 3.8 Albumin/Globulin Ratio 0.9 ECG Additional Comments: A review of her telemetry did not reveal any recent arrhythmias
--- NOTE | 2018-09-05 16:02 | Discharge Summary ---
Date of Service September 05, 2018 Admission HPI Per Admitting Provider The patient is a 33 yo female who presents with the above complaints. She had been transferred from [facility] to [place] last week, where her workup was unrevealing. She did see Dr. Nix, a director recreation at [facility], who felt that her symptoms were nutrional. She was started on a scopolamine patch, pantoprazole, mirtazapine and ondansetron to help deal with recurrent nausea and decreased oral intake. She has noticed a dry mouth as a side effect, and has not noted any improvement in her symptoms. Principal Diagnosis no Discharge Data Allergies Allergy/AdvReac Type Severity Reaction Status Date / Time bertholletia excelsa (brazil Allergy Unknown Unknown Verified 09/02/18 11:10 nut) bee pollen Allergy Unknown Unverified 08/29/18 18:23 Penicillins Allergy Rash Unverified 08/29/18 18:23 aspirin AdvReac Severe Vomiting Unverified 08/29/18 18:23 morphine AdvReac Vomiting Unverified 08/29/18 18:23 Consultations 08/29/18 20:12 ED Decision to Admit Stat 08/30/18 00:04 Consult Cardiology Routine Consult Case Management - Discharge Planning Routine 08/30/18 01:36 Consult Gastroenterology Routine 09/02/18 09:12 Consult Health Information Management Stat Ordered Studies 08/30/18 00:04 CT abd pelvis wo con Urgent 08/30/18 01:28 MR brain MS wo con Routine Hospital Course (1) Generalized weakness: (2) Numbness and tingling of both lower extremities: (3) Nausea: (4) PSVT (paroxysmal supraventricular tachycardia): (5) Palpitation: (6) Acute hypokalemia: (7) Elevated LFTs: 33 yo admiited on 08/10/2018 because of tachycardia and hypokalemia, PSVT (paroxysmal supraventricular tachycardia): Per report, she has HR of 170 at rest, received an unknown medication from EMS to return to normal. Echo on 08/30 showed EF 60-65% with no major valvular issues or other concerns. R Records from [facility] indicate she had a sinus tachycardia with a warm-up and cool down phase. On telemetry here, she has had no events, EP director recreation, Dr. Allen saw her. No definite tachyarrhythmia identified on current monitoring, discussed options for evaluation. continue monitoring her in the outpatient setting with a 30 day event monitor. Elevated LFTs: Has been stable since admission, Unclear etiology as she has had normal LFTs nausea, GI input appreciated, acute hep panel neg, SAMUEL,CMV pending , EBV past disease,, LKM, neg, ASMA neg Other viruses and med side effects also in the differntial (the latter because LFTs initially normal. Per outside records, LFTs were up about 08/19/18 and remeron and scopolamine pathch not started until after. So if meds are causing issue in liver the PPI or zofran could be issue. LFTS better. n/v--EGD, GES, multiple CTs neg, trial of PPIs neg, TSH normal, 08/12/18 test neg, cortisol level 08/20 and repeat normal. I had navigator to set up appointment with GI in 2-week to follow-up and reviewed the testing results Patient report she has more than 50 pound weight lost, and 5 pounds weight loss during this hospitalization, she dose have poor appetite and eating above 30-4 0% each meal, Strongly recommend her to follow-up with PCP and GI to continue evaluation and treatment [facility] GI suggested central process and neurology there iniated testing for Neuromyelitis optica but per DR Matson 09/01 neuro thinks not likely with minimal visual symptoms. GI workup So farnegative. wt loss--from n/v, Appreciate dietitian consult. Recomend calorically dense foods and eat every 2 hours rather than try to face down 3 large meals. Acute hypokalemia upon admission, resolved and follow-up Numbness and tingling of both lower extremities upon admission, Likely secondary to hypokalemia. She has no such complaints today MRI brain on 08/29 was normal, indicating no stroke as cause of issues. Per note, Dr. Staples who felt any sort of demyelinating disease (such as neuromyelitis optica) was very unlikely given the normal MRI and lack of vision symptoms. Generalized weakness: Metabolic and radiology workup as above. Lyme testing with a single IgM band previously, and was repeated in the ED. Ehrlichiosis and anaplasmosis tests pending ESR, SAMUEL, ANCA, EBV, CMV, Coxsackie B all pending DVT prophylaxis: Low risk per calculator - SCDs Upon discharge patient was reluctant to be discharged, she has been here 7 days,So far workup is unremarkable,I was trying to convince her to follow-up with PCP to continue eval and tx as outpatient setting, She agreed Total Time Total Time Spent Total Time Spent (In Minutes): 35 Discharge Plan Discharge Items Patient Disposition: Home - Self-Care Reason For Visit: PSVT Discharge Diagnosis: SVT episode weight lost abnormal LFT Nausea, electrolye abnormalities. Condition: Fair Discharge Goals: Decrease discomfort and Diagnostic testing Activity: Resume your previous activity Non-emergency contact: Primary Care Provider Call non-emergency contact if: you have any medication questions Follow-up/Referrals: [facility]-Cardiology [Outside] - 09/20/18 12:40 pm (Please, follow up at [facility] Cardiology Office with Charla Piper PA-C on SundaySeptember 20 at 1:00 pm (arrive 12:40 pm). *This office is located in [address] of [facility] to [facility]. If you need to change this appointment, call the office at [phone].) Willie Chand MD [Physician] - 09/27/18 1:45 pm (Please, follow up at [facility] Neurology Office with Dr. Willie Chand on SundaySeptember 27 at 2:00 pm (arrive 1:45 pm). *This office is located at [facility] in [place]. If you need to change this appointment, call the office at [phone].) Luigi Joaquin MD [Primary Care Provider] - 09/06/18 3:10 pm (Please, follow up with Dr. Burton on SundaySeptember 06 at 3:30 pm (arrive 3:10 pm). *This office is located in [address] of [facility] to [facility]. If you need to change this appointment, call the office at [phone]. A CARDIAC EVENT MONITOR WILL BE MAILED TO YOUR HOME. THE PACKAGE WILL INCLUDE E ASY TO FOLLOW INSTRUCTIONS.) Diet: Regular Addtl Provider Instructions: Recommend patient should try to get 4 boost of ensure daily and whatever else she can eat is fine. Recommend calorically dense foods (peanut butter, or occitan yogurt for example) and eat every 2 hours rather than try to face down 3 large meals. you possible has PSVT, you need to follow up with director recreation as instructed Echo on 08/30 showed EF 60-65% with no major valvular issues or other concerns. you have Elevated LFTs and weight lost Dr. Schwab has ordered test for you , you need to keep appointment with him for the test result and next step please follow up with neurologist and pcp as insructed you need to follow up with your primary care physician in 1 week, - take medication as instructed, never overdose or any misuse, or take with alcohol, because misuse of medicine may cause organ damage or , call me, or your primary care physician if have questions of discharge medicaitons. - call your primary care physician, or go to local emergency room if has any fever/chill, chest pain, shortness of breathing, nausea/vomiting/abdominal pain, facial droop/slurry speech/local weakness, or if has any questions. - fall precaution - diet as instructed - you need to follow up with your subspecialist, such as Dr. Schwab, Dr. Chand and, Dr. Reyes Prescriptions: Continued multivitamin Tablet 1 tab PO DAILY RF: 0 pantoprazole 40 mg tablet,delayed release (DR/EC) 40 mg PO BID RF: 0 mirtazapine 15 mg tablet 15 mg PO DAILY RF: 0 scopolamine base 1 mg over 3 days patch 3 day 1 patch topical DIRECTED RF: 0 ondansetron 4 mg Tablet,Disintegrating 4 mg PO QID PRN (Reason: Nausea) RF: 0 Discontinued acetaminophen 325 mg Tablet 650 mg PO Q6H PRN (Reason: Pain) RF: 0 Stand-Alone Forms: [facility] Discharge Orders: Discharge Order (Routine); Ordered 09/05/18 Ordered By: Harry Goodwin Admission Data Admit Date/Time: 08/29/18 22:54 Attending Provider: Harry Goodwin Admit Provider: Satinder Suarez Primary Care Provider: Luigi Joaquin V. Other Providers: Satinder Suarez ; Jose Sigala ; Jeff Garnett ; Marc Valladares Service: Telemetry Other Interventions: Discharge Summary Assessment (RN) Last Done: 09/05/18 12:46 DC Date/Time DO NOT enter until pt leaves facility: 09/05/18 15:09
[2018-09-05 22:41] LABS: Anaplasma phagocytophila IgM <1:20 (<1:20); Anti Nuclear Antibody Screen NEGATIVE (NEGATIVE); CMV IgG Antibody <0.60 U/ML; CMV IgM Antibody <30.00 Au/mL; Coxsackie B1 <1:8 (<1:8); Coxsackie B2 <1:8 (<1:8); Coxsackie B3 <1:8 (<1:8); Coxsackie B4 <1:8 (<1:8); Coxsackie B5 <1:8 (<1:8); Coxsackie B6 <1:8 (<1:8); Ehrlichia chaff IgG Ab <1:64 (<1:64); Ehrlichia chaff IgM Ab <1:20 (<1:20); Myeloperoxidase Ab <1.0 AI (<1.0)
== END 2018-09-05 15:09 | disposition home or self-care (01) | DRG 310 ==
LOC: ED 17:33 → 2S 22:54 → SUATTDRO 22:54 → 2S 23:49

== ENCOUNTER 2018-09-05 15:43 | Observation (INO) ==
[2018-09-05] MEDS ORDERED: SODIUM CHLORIDE 0.9% 500 ML IV SCH (16:30)
--- NOTE | 2018-09-05 17:00 | Emergency Department Note ---
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 [facility] for [facility], but was then transferred to a hospital in [place] for GI issues. She states that she was then discharged home, but shortly after, she began to experience face and upper extremity numbness. She notes that she was then referred to the ER at [facility] where she was admitted to the hospital for several days. She reports that today she was evaluated by Dr. Reyes of Cardiology and discharged. The patient states that while walking down the hallway and out of the hospital, she felt her heart beating very quickly as well as weakness in her legs. She notes that she was then given a wheelchair and brought to the ER. The patient also states that she has been experiencing episodes of both bradycardia and tachycardia for the past several days. She states that she has also lost about 55 pounds between the last 2 months secondary to GI issues. She notes that she was evaluated by a propulsion engineer who believes some of her symptoms could be related to her thyroid. Home Medications Home Medications Medication Instructions Recorded Confirmed Type ondansetron 4 mg PO QID PRN 08/13/18 09/05/18 History mirtazapine 15 mg PO DAILY 08/29/18 09/05/18 History multivitamin 1 tab PO DAILY 08/29/18 09/05/18 History pantoprazole 40 mg PO BID 08/29/18 09/05/18 History scopolamine base 1 patch TOPICAL DIRECTED 08/29/18 09/05/18 History Allergies Allergy/AdvReac Type Severity Reaction Status Date / Time bee venom protein (honey bee) Allergy Intermediate FACE SWELLS Verified 02/28/19 16:31 Penicillins Allergy Intermediate Rash Verified 09/05/18 16:31 aspirin AdvReac Severe Vomiting Verified 09/05/18 16:31 morphine AdvReac Intermediate Vomiting Verified 09/05/18 16:31 prochlorperazine AdvReac Intermediate FEEL LIKE Verified 09/05/18 16:31 [From Compazine] "OUT OF MY MIND". BRAZIL NUT Allergy Severe THROAT Uncoded 09/05/18 16:31 SWELLS SHUT Past Med/Surg History Medical History DVT prophylaxis Unintentional weight loss of 10% body weight within 6 months PSVT (paroxysmal supraventricular tachycardia) (Resolved) Heart palpitations (Inactive) Lyme disease (Inactive) Tachycardia Family History Other Colon cancer Hodgkin lymphoma Lung cancer Lupus No significant family history Social History Preferred Language: Austrian Communication Ability: Effective Thermo Processor Required: No Beliefs That Will Affect Care: None marital status: Current Living Situation: Spouse and Family Other Information That Helps Us Care for You: No Feels Safe at Home: Yes Safety Concerns: Feels Safe At This Time Smoking Status: Never smoker Hx Alcohol Use: No Hx Substance Use: No Review of Systems See HPI for pertinent positives & negatives. and A total of 10 systems reviewed and were otherwise negative Physical Exam Vital Signs Vital Signs - 24 hr 09/05/18 15:44 09/05/18 17:34 09/05/18 19:13 Temperature 37 C Temperature Source Oral Sepsis Recent Fever Within 48 Hours No Sepsis Action Taken by Nursing No Action Required Pulse Rate 139 H Pulse Rate [Apical] 85 89 Pulse Rate [Finger] Pulse Rhythm Regular Pulse Strength Normal Respiratory Rate 20 18 18 Respiratory Effort / Characteristics Non-Labored Spontaneous Respiratory Depth Normal Respiratory Pattern Regular Blood Pressure 115/73 Blood Pressure [Left Arm] 137/87 122/79 Blood Pressure Mean 87 Blood Pressure Mean [Left Arm] 103 93 Blood Pressure Position [Left Arm] Pulse Oximetry 98 98 96 Oxygen Delivery Method Room Air Room Air Room Air 09/05/18 19:49 09/05/18 20:00 Temperature 36.6 C Temperature Source Oral Sepsis Recent Fever Within 48 Hours Sepsis Action Taken by Nursing Pulse Rate Pulse Rate [Apical] Pulse Rate [Finger] 72 Pulse Rhythm Pulse Strength Respiratory Rate 18 Respiratory Effort / Characteristics Respiratory Depth Respiratory Pattern Blood Pressure Blood Pressure [Left Arm] 114/77 Blood Pressure Mean Blood Pressure Mean [Left Arm] 89 Blood Pressure Position [Left Arm] Lying Pulse Oximetry 95 Oxygen Delivery Method Room Air Room Air GENERAL: Patient is in no acute distress. HEENT: No acute trauma, normocephalic atraumatic, mucous membranes moist, no nasal congestion, no scleral icterus. NECK: No stridor, no adenopathy, no meningismus, trachea is midline. LUNGS: Clear to auscultation bilaterally, no wheeze, no rhonchi, breath sounds equal. HEART: Mildly tachycardic, regular rhythm, no murmurs ABDOMEN: Soft, nontender, bowel sounds positive, no hernias, no peritonitis. EXTREMITIES: No cyanosis or edema, full range of motion of all the joints without pain or difficulty, no signs for acute trauma. NEUROLOGIC: Oriented x 3, no acute motor or sensory deficits, no focal weakness. SKIN: No rash, no jaundice, no diaphoresis. Course 1604: Past medical records reviewed. The patient was evaluated in room A12B, and a complete history and physical examination were performed. 1621: I reviewed the patient's case with Dr. Reyes - [facility] Cardiolgy. He requests the patient be admitted for further testing. 1734: I reviewed the patient's case with Dr. Laws [facility] Hospitalist. She will evaluate the patient for further management. 1742: I updated the patient on today's findings. Administered Medications Sodium Chloride (Nss 1000ml) 1,000 mls @ 125 mls/hr IV .Q8H PRECIOUS Stop: 09/06/18 04:28 Last Admin: 09/05/18 21:35 Dose: 125 mls/hr Documented by: [id number] Pantoprazole Sodium (Protonix) 40 mg PO BID PRECIOUS Stop: 10/05/18 20:59 Last Admin: 09/05/18 21:40 Dose: 40 mg Documented by: [id number] Scopolamine (Transderm-Scop) 1.5 mg TD Q72H PRECIOUS Stop: 10/05/18 20:59 Last Admin: 09/05/18 21:40 Dose: 1.5 mg Documented by: [id number] Discontinued Medications Sodium Chloride (Nss) 500 mls @ 999 mls/hr IV .Q31M PRECIOUS Stop: 09/05/18 17:00 Last Infusion: 09/05/18 17:39 Dose: 0 mls/hr Documented by: [id number] Admin: 09/05/18 17:00 Dose: 999 mls/hr Documented by: [id number] Ioversol (Optiray 320 125ml) 120 ml IV ONCE PRN PRN Reason: Interaction Checking Stop: 09/09/18 17:09 Last Admin: 09/05/18 17:11 Dose: 1 ml Documented by: [id number] Medical Decision Making Differential Diagnosis Differential Diagnosis includes: tachy-love syndrome, thyroid disorder, electrolyte imbalance, anemia, SVT, a-fib, and PE. Medical Records Attestation: I reviewed the patient's medical records. Home Medications Current Medication List: was personally reviewed by me Laboratory Data Lab Results 09/05/18 09/05/18 Range/Units 16:57 16:57 Magnesium 2.2 (1.8-2.4) mg/dl Troponin I < 0.015 (0-0.045) ng/ml TSH 0.740 (0.300-4.500) uIu/ml Free T4 1.30 (0.8-1.6) ng/dl Specimen Hemolysis Imaging Data Radiologist's Impression: Radiology results as stated below per my review and the radiologist's interpretation: CT angio chest PE protocol CLINICAL HISTORY: 33 years-old Female presenting with chest pain, clinical concern for pulmonary embolus. TECHNIQUE: Multidetector CT angiography of the chest was performed after administration of intravenous contrast. 3-D volumetric and/or maximum intensity projection (MIP) images were subsequently reconstructed for review. IV contrast: 120 mL of Optiray 320. One or more dose lowering techniques were used consistent with the principles of ALARA (as low as reasonably achievable), including automatic exposure control, mA or kV adjustment to individual patient size, and/or use of iterative reconstruction. COMPARISON: Chest x-ray from 08/12/2018. CT DOSE (mGy.cm): The estimated cumulative dose is 309.96 mGy.cm. FINDINGS: Sound Person topogram: Cholecystectomy clips. Pulmonary vasculature: The study is suboptimal for the assessment of the pulmonary vascular tree secondary to timing of the contrast bolus. No filling defect within the pulmonary arteries to suggest embolus. Main pulmonary artery is not enlarged. No flattening of the interventricular septum. No intracardiac filling defect. No reflux of contrast into the hepatic veins. Remaining chest: Soft tissues: Normal thyroid and thoracic inlet. No axillary, supraclavicular, mediastinal, or hilar lymphadenopathy. Normal aorta. Normal heart size. No pericardial or pleural effusion. Upper abdomen normal. Lungs and airways: No pneumothorax. Central airways patent. Pulmonary arteries are not significantly enlarged relative to adjacent bronchi. No interlobular septal thickening. No focal infiltrate or nodule. Musculoskeletal: Normal osseous structures. IMPRESSION: 1. No evidence of pulmonary embolus. No acute intrathoracic pathology. Electronically signed by: Candido James M.D. 09/05/2018 5:18 PM ECG Data Attestation: I personally reviewed and interpreted this ECG as follows: Indication: tachycardia Rate (beats per minute): 115 Rhythm: sinus tachycardia Findings: + nonspecific-ST abn (diffuse); no PVC and no ST elevation Blood Pressure Blood Pressure Findings: Normal blood pressure Blood Pressure Disposition: did not require urgent referral MDM Narrative The patient presents with near syncope, some shortness of breath and tachycardia. She was on her way to leave the hospital after a several day admission when the symptoms began. The patient had an EKG done upon arrival, she had sinus tachycardia with some nonspecific ST changes. Her initial pulse upon arrival at the ED was 140. The pulse rate was about 115 by the time the EKG was done. The patient's laboratory work from earlier today was reviewed, no major findings were noted. I did perform a magnesium, TSH and troponin, these tests were all unremarkable. I spoke with Dr. Reyes of cardiology. The patient does require a repeat stay and further workup. The cause for her presentation is not clear. Of note, I did perform a chest CT, there was no PE, no evidence for aortic dissection. The patient is currently resting comfortably. She is at times tachycardic on the monitor but it does appear to be a sinus tachycardia. I did speak to the patient and rn case mgr. The on-call hospitalist was consulted. Impression & Plan Near syncope, Tachycardia, Shortness of breath Discharge Plan Visit Data *Final* Discharge Date/Time: 09/05/18 19:33 Chief Complaint: Chest Pain Stated Complaint: CHEST PAIN, SOB, JUST DC FROM FLOOR ED Provider: Mikey Berg Discharge Problem: Near syncope, Tachycardia, Shortness of breath Patient Disposition: Being Evaluated by Hospitalist Discharge Instructions Interventions: ED Discharge Assessment Last Done: 09/05/18 19:33 The scribe's documentation has been prepared under my direction and personally reviewed by me in its entirety. I confirm that the note above accurately reflects all work, treatment, procedures, and medical decision making performed by me.
[2018-09-05] MEDS ORDERED: OPTIRAY 320 125ml IV PRN (17:10)
--- NOTE | 2018-09-05 17:20 | CT Scan Report ---
CT angio chest PE protocol CLINICAL HISTORY: 33 years-old Female presenting with chest pain, clinical concern for pulmonary embo amalia. TECHNIQUE: Multidetector CT angiography of the chest was performed after administration of intravenou s contrast. 3-D volumetric and/or maximum intensity projection (MIP) images were subsequently reconst ructed for review. IV contrast: 120 mL of Optiray 320. One or more dose lowering techniques were used consistent with the principles of ALARA (as low as reasonably achievable), including automatic expos ure control, mA or kV adjustment to individual patient size, and/or use of iterative reconstruction. COMPARISON: Chest x-ray from 08/12/2018. CT DOSE (mGy.cm): The estimated cumulative dose is 309.96 mGy.cm. FINDINGS: Chaser Apprentice topogram: Cholecystectomy clips. Pulmonary vasculature: The study is suboptimal for the assessment of the pulmonary vascular tree secondary to timing of the contrast bolus. No filling defect within the pulmonary arteries to suggest embolus. Main pulmonary ar rambo is not enlarged. No flattening of the interventricular septum. No intracardiac filling defect. N o reflux of contrast into the hepatic veins. Remaining chest: Soft tissues: Normal thyroid and thoracic inlet. No axillary, supraclavicular, mediastinal, or hilar lymphadenopathy. Normal aorta. Normal heart size. No pericardial or pleural effusion. Upper abdomen n ormal. Lungs and airways: No pneumothorax. Central airways patent. Pulmonary arteries are not significantly enlarged relative to adjacent bronchi. No interlobular septal thickening. No focal infiltrate or nod ule. Musculoskeletal: Normal osseous structures. IMPRESSION: 1. No evidence of pulmonary embolus. No acute intrathoracic pathology. Electronically signed by: Candido James M.D. 09/05/2018 5:18 PM
[2018-09-05 17:48] LABS: Magnesium 2.2 mg/dl (1.8-2.4); Troponin I < 0.015 ng/ml (0-0.045)
--- NOTE | 2018-09-05 19:29 | History & Physical Report ---
Date of Service September 05, 2018 Assessment & Plan (1) Near syncope: Patient presently hemodynamically stable. Asymptomatic. Extensive workup unrevealing to include normal echo, normal CTA, negative troponin -Check orthostatic VS. (2) Tachycardia: Presently NSR -Cardiology consultation - possible EP study in AM -Maintain electrolytes -NSS at 125mL/hr x 1 liter F/E/N - NSS at 125mL/hr, monitor electrolytes, regular diet as tolerated Ppx - IVF and ambulation - patient is low risk for DVT Code -FUll Dispo - Observation to med floor with tele History of Present Illness Chief Complaint: Tachycardia Primary Care Provider: Luigi Joaquin MD Patient is a 33yo female with a plethora of complaints to include 50# unintentional weight loss in the last 2 months, nausea and decreased PO intake, PSVT. ALso with abnormal LFTs, numbness/tingling of extremities, hypokalemia, weakness. Patient was initially worked up at [facility] as well as [place] with no definitive diagnosis given. She was started on a scopolamine patch, protonix, mirtazapine and zofran to help manage her chronic nausea. It seems that some rheumatologic studies as well as erlichiosis/anaplasmosis testing are still pending from [facility] as well as some Neurological studies and CSF studies from [facility] (Patient was being worked up for NMO, possible demyelinating diseases). Patient was discharged to home today with followup arranged. On her way out of the hospital she began to feel tingling and weakness in her arms and legs as well as feeling weak, dizzy and presyncopal with palpitations. She was transported to the ER. Heart rate reportedly 140 bpm. Presently she is without complaints. No events on monitor. She is frustrated with prolonged workup and no answers. Allergies Allergy/AdvReac Type Severity Reaction Status Date / Time bee venom protein (honey bee) Allergy Intermediate FACE SWELLS Verified 09/05/18 16:31 Penicillins Allergy Intermediate Rash Verified 09/05/18 16:31 aspirin AdvReac Severe Vomiting Verified 09/05/18 16:31 morphine AdvReac Intermediate Vomiting Verified 09/05/18 16:31 prochlorperazine AdvReac Intermediate FEEL LIKE Verified 09/05/18 16:31 [From Compazine] "OUT OF MY MIND". BRAZIL NUT Allergy Severe THROAT Uncoded 09/05/18 16:31 SWELLS SHUT Home Medications Home Medications Medication Instructions Recorded Confirmed Type ondansetron 4 mg PO QID PRN 08/13/18 09/05/18 History mirtazapine 15 mg PO DAILY 08/29/18 09/05/18 History multivitamin 1 tab PO DAILY 08/29/18 09/05/18 History pantoprazole 40 mg PO BID 08/29/18 09/05/18 History scopolamine base 1 patch TOPICAL DIRECTED 08/29/18 09/05/18 History Past Med/Surg History Medical History DVT prophylaxis Unintentional weight loss of 10% body weight within 6 months PSVT (paroxysmal supraventricular tachycardia) (Resolved) Heart palpitations (Inactive) Lyme disease (Inactive) Tachycardia Family History Other Colon cancer Hodgkin lymphoma Lung cancer Lupus No significant family history Social History Communication Ability: Effective Beliefs That Will Affect Care: None marital status: Current Living Situation: Family Feels Safe at Home: Yes Smoking Status: Never smoker Hx Alcohol Use: No Hx Substance Use: No Review of Systems All systems reviewed & are unremarkable except as noted in HPI & below Physical Exam Vital Signs (Past 24 Hours): Last Vital Signs Temp 37 C 09/05/18 15:44 Pulse 89 09/05/18 19:13 Resp 18 09/05/18 19:13 BP 122/79 09/05/18 19:13 Pulse Ox 96 09/05/18 19:13 Physical Exam: General: patient resting comfortably, NAD, non-toxic in appearance, AA&O x 4 Skin: warm, dry, intact, no rashes or lesions HEENT: NC/AT, PERRL, EOMI, anicteric sclera, conjunctiva without injection, external ear normal to inspection and nontender, nares patent, moist mucus membranes, dentition intact, no oropharyngeal lesions, neck supple, trachea midline, no LAD, no thyromegaly, no JVD Heart: +S1/S2, regular, no m/r/g Lungs: equal air entry bilaterally, no rales/rhonchi/wheezes Abd: +BS, soft, NT/ND, no masses/organomegaly/ascites Ext: warm, 2+ pulses in UE/LE bilaterally, no clubbing/cyanosis or edema Neuro: nonfocal, patient AA&O x 4, speech intact, no facial droop, moving all extremities on command with equal strength 5/5 Results & Data Laboratory Results Lab Results 09/05/18 Range/Units 16:57 Magnesium 2.2 (1.8-2.4) mg/dl Troponin I < 0.015 (0-0.045) ng/ml TSH 0.740 (0.300-4.500) uIu/ml Specimen Hemolysis Diagnostic Findings CT angio chest PE protocol CLINICAL HISTORY: 33 years-old Female presenting with chest pain, clinical concern for pulmonary embolus. TECHNIQUE: Multidetector CT angiography of the chest was performed after administration of intravenous contrast. 3-D volumetric and/or maximum intensity projection (MIP) images were subsequently reconstructed for review. IV contrast: 120 mL of Optiray 320. One or more dose lowering techniques were used consistent with the principles of ALARA (as low as reasonably achievable), including automatic exposure control, mA or kV adjustment to individual patient size, and/or use of iterative reconstruction. COMPARISON: Chest x-ray from 08/12/2018. CT DOSE (mGy.cm): The estimated cumulative dose is 309.96 mGy.cm. FINDINGS: Metal Buffer topogram: Cholecystectomy clips. Pulmonary vasculature: The study is suboptimal for the assessment of the pulmonary vascular tree secondary to timing of the contrast bolus. No filling defect within the pulmonary arteries to suggest embolus. Main pulmonary artery is not enlarged. No flattening of the interventricular septum. No intracardiac filling defect. No reflux of contrast into the hepatic veins. Remaining chest: Soft tissues: Normal thyroid and thoracic inlet. No axillary, supraclavicular, mediastinal, or hilar lymphadenopathy. Normal aorta. Normal heart size. No pericardial or pleural effusion. Upper abdomen normal. Lungs and airways: No pneumothorax. Central airways patent. Pulmonary arteries are not significantly enlarged relative to adjacent bronchi. No interlobular septal thickening. No focal infiltrate or nodule. Musculoskeletal: Normal osseous structures. IMPRESSION: 1. No evidence of pulmonary embolus. No acute intrathoracic pathology. Electronically signed by: Candido James M.D. 09/05/2018 5:18 PM Dictated: 09/05/18 1714 Transcribed: 09/05/18 1714 ECG Additional Comments: ST at 115, rightward axis, no acute ischemia Code Status & VTE Plan Code Status FULL VTE Prophylaxis Plan VTE Prophylaxis will be ordered: Yes Critical Care Time Critical Care Time: No
[2018-09-05] MEDS ORDERED: SODIUM CHLORIDE 0.9% 1000ML 1,000 ML IV SCH (20:29)
[2018-09-05] MEDS ORDERED: POLYETHYLENE (MIRALAX) 17 GM PACK PO PRN (20:29)
[2018-09-05] MEDS ORDERED: ACETAMINOPHEN 325 MG TAB PO PRN (20:29)
[2018-09-05] MEDS ORDERED: ONDANSETRON 4 MG OD TAB PO PRN (20:29)
[2018-09-05] MEDS: PANTOprazole 40 MG TAB PO SCH (21:40)
[2018-09-05] MEDS: SCOPOLAMINE 1.5 MG TDSY TD SCH (21:40)
[2018-09-05] MEDS: CHECK SCOPOLAMINE PATCH PLACEMENT SCH (23:48)
[2018-09-06 06:30] LABS: BUN Creatinine Ratio 7.3 (10-20); Creatinine Clr Calc Pharmacy 156.2 ml/min; Est GFR (African American) 143.2; Est GFR (Non-African American) 123.5; Potassium 3.6 mmol/L (3.5-5.1)
[2018-09-06] MEDS: MIRTAZAPINE TAB 15 MG TAB PO SCH (10:17)
[2018-09-06] MEDS: CHECK SCOPOLAMINE PATCH PLACEMENT SCH ×2 (10:17→17:33)
[2018-09-06] MEDS: MULTIVITAMIN TAB PO SCH (10:18)
[2018-09-06] MEDS: PANTOprazole 40 MG TAB PO SCH ×2 (10:18→21:23)
--- NOTE | 2018-09-06 16:19 | Discharge Summary ---
Date of Service September 06, 2018 Admission HPI Per Admitting Provider Patient is a 33yo female with a plethora of complaints to include 50# unintentional weight loss in the last 2 months, nausea and decreased PO intake, PSVT. ALso with abnormal LFTs, numbness/tingling of extremities, hypokalemia, weakness. Patient was initially worked up at [facility] as well as [place] with no definitive diagnosis given. She was started on a scopolamine patch, protonix, mirtazapine and zofran to help manage her chronic nausea. It seems that some rheumatologic studies as well as erlichiosis/anaplasmosis testing are still pending from [facility] as well as some Neurological studies and CSF studies from [facility] (Patient was being worked up for NMO, possible demyelinating diseases). Patient was discharged to home today with followup arranged. On her way out of the hospital she began to feel tingling and weakness in her arms and legs as well as feeling weak, dizzy and presyncopal with palpitations. She was transported to the ER. Heart rate reportedly 140 bpm. Presently she is without complaints. No events on monitor. She is frustrated with prolonged workup and no answers. Admission Exam Per Admitting Provider General: patient resting comfortably, NAD, non-toxic in appearance, AA&O x 4 Skin: warm, dry, intact, no rashes or lesions HEENT: NC/AT, PERRL, EOMI, anicteric sclera, conjunctiva without injection, e xternal ear normal to inspection and nontender, nares patent, moist mucus membranes, dentition intact, no oropharyngeal lesions, neck supple, trachea midline, no LAD, no thyromegaly, no JVD Heart: +S1/S2, regular, no m/r/g Lungs: equal air entry bilaterally, no rales/rhonchi/wheezes Abd: +BS, soft, NT/ND, no masses/organomegaly/ascites Ext: warm, 2+ pulses in UE/LE bilaterally, no clubbing/cyanosis or edema Neuro: nonfocal, patient AA&O x 4, speech intact, no facial droop, moving all extremities on command with equal strength 5/5 Principal Diagnosis Tachycardia, Near-Syncope Discharge Exam General: Anxious young female, mild distress. HEENT: NC/AT; PERRLA with EOMI; [place] conjunctiva, MMM. Neck: Supple and nontender Cardiac: RRR Lungs: CTA bilaterally; No rhonchi, wheezing, or rales Abdomen: Bowel normoactive X 4; Nontender to palpation Extremities: Warm. No edema present Neuro: No focal weakness Skin: No rash Discharge Data Allergies Allergy/AdvReac Type Severity Reaction Status Date / Time bee venom protein (honey bee) Allergy Intermediate FACE SWELLS Verified 09/05/18 16:31 Penicillins Allergy Intermediate Rash Verified 09/05/18 16:31 aspirin AdvReac Severe Vomiting Verified 09/05/18 16:31 morphine AdvReac Intermediate Vomiting Verified 09/05/18 16:31 prochlorperazine AdvReac Intermediate FEEL LIKE Verified 09/05/18 16:31 [From Compazine] "OUT OF MY MIND". BRAZIL NUT Allergy Severe THROAT Uncoded 09/05/18 16:31 SWELLS SHUT Consultations 09/05/18 17:36 ED Decision to Admit Stat 09/05/18 20:29 Consult Cardiology Routine Ordered Studies 09/05/18 16:18 CT angio chest PE protocol Stat Hospital Course (1) Near syncope: - Was admitted from 08/29-09/05 for ?PSVT prior to arrival; discharged to home and had near syncopal episode while leaving hospital. - Cardiac work up, including recent TTE and troponins all negative; CTA negative in the ER. - Received IV fluids at 125 cc/hr on admission, now discontinued. - No further episodes of syncope; stable for discharge with close cardiology follow up. (2) Tachycardia: - Reported tachycardia during pre-syncope episode and palpitations. - Has remain rate controlled on medical technologist clinical. - Ambulated with patient in hallway, no significant rise in HR noted. - Will start propanolol 10 mg BID per cardiology recs. (3) PSVT (paroxysmal supraventricular tachycardia): - Pt. reported she developed ?SVT during EMS transport and was given an unknown medication. - Echo during last admission negative for acute abnormalities. - No abnormalities noted over previous 7 day admission; telemetry has been NSR during last 24 hours. - Cardiology consulted during last admission and re-consulted during this admission. - Will need 30 day monitor following discharge and possible stress test in future. (4) Shortness of breath: - CTA was negative in ER. - Now resolved. (5) Numbness and tingling of both lower extremities: - Unclear etiology; developed recurrent symptoms during near syncopal episode. - MRI brain on 08/29 was negative. - Discussed with neurology during previous admission, demyelinating disease is very unlikely. - [facility] [place] concerned for neuromyelitis optica, but is unlikely due to lack of visual symptoms. (6) Elevated LFTs: - LFTs now trending down overall. - GI consulted during previous admission, appreciate input. - Acute hepatitis panel, SAMUEL, CMV, EBV, LKM negative. - Has had extensive work up with GI (EGD, GES, multiple CT scans) in past at outside hospitals, testing was all negative. - Will need to follow up with GI as outpt for further work up. (7) Unintentional weight loss of 10% body weight within 6 months: - Lost >50 pounds since June 2018; lost 5 lbs during recent 7 day admission. - SAMUEL, ANCA, EBV, CMV, Coxsackie, Lyme virus panel all negative; Ehrlichiosis and anaplasmosis negative. - Continue Remeron, Scop patch as prescribed. Zofran prn nausea/vomiting. - Nutrition has been consulted on patient. - Will need to follow up with PCP to discuss. - Encourage regular diet with supplements at least 3 times daily. (8) DVT prophylaxis: - Encouraged ambulation. Pt. was stable for discharge to home on 09/06/2018. Will need close follow up with cardiology. Total Time Total Time Spent Total Time Spent (In Minutes): >30 minutes Total Time Includes: Examination of the Patient, Discharge Planning, Medication Reconciliation, Communication With Other Providers and Other Discharge Plan Discharge Items Patient Disposition: Home - Self-Care Reason For Visit: TACHYCARDIA Discharge Diagnosis: Tachycardia Condition: Fair Discharge Goals: Decrease discomfort, Diagnostic testing, Improve disease control, Improve function, Increase independence, Improve nutritional status, Prevent disease and Therapeutic intervention Activity: Resume your previous activity Non-emergency contact: Primary Care Provider and Rotoprinter Call non-emergency contact if: you have any medication questions, your symptoms worsen, your pain is concerning for you and you have a fever Follow-up/Referrals: Luigi Joaquin MD [Primary Care Provider] - Diet: Regular Addtl Provider Instructions: 1. Near syncope/Tachycardia * Please follow up with cardiology in the next 1-2 weeks to discuss a 30 day holter monitor. * Please drink plenty of fluids to avoid dehydration -- at least 8-10 glasses of water per day. * Please continue Propanolol 10 mg twice daily per cardiology recs. * Prescription for Propanolol was sent to your pharmacy. 2. Elevated LFTs * LFTs are now improved overall. * Please follow up with GI in the outpatient clinic to discuss further work up. 3. Please follow up with your primary care provider in 7-10 days to discuss your recent hospitalizations. Prescriptions: New propranolol 10 mg Tablet 10 mg PO BID 30 Days Qty: 60 RF: 1 Continued multivitamin Tablet 1 tab PO DAILY RF: 0 pantoprazole 40 mg tablet,delayed release (DR/EC) 40 mg PO BID RF: 0 mirtazapine 15 mg tablet 15 mg PO DAILY RF: 0 scopolamine base 1 mg over 3 days patch 3 day 1 patch topical DIRECTED RF: 0 ondansetron 4 mg Tablet,Disintegrating 4 mg PO QID PRN (Reason: Nausea) RF: 0 Stand-Alone Forms: Call Back Authorization, [facility] Discharge Orders: Discharge Order (Routine); Ordered 09/07/18 Ordered By: Kylah Ivey Admission Data Admit Date/Time: 09/05/18 19:13 Attending Provider: Hansel Wise Admit Provider: Eli Lwas Primary Care Provider: Luigi Joaquin V. Other Providers: Eli Laws ; Gino Reyes Service: Telemetry Other Interventions: Discharge Summary Assessment (RN) Last Done: 09/07/18 10:48 Pending Studies at Discharge: No DC Date/Time DO NOT enter until pt leaves facility: 09/07/18 11:00 Supervising Physician Co-Signing Physician Notes Attending Attestation & Discharge Note: Pt seen/examined, chart reviewed, discharge care plan d/w ATILIO Ivey. I agree w/ the oneill components of her discharge documentation. 33yo female with history of recent multiple admissions to multiple hospitals over the last 1-2 months who presented with several complaints including but not limited to palpitations, nausea, presyncope, syncope, etc. She has had an extensive work-up to date including MRI brain, CT chest/abd/pelvis, EGD, echo, numerous lab studies, etc. All work-up has been normal. Cortisol, duodenal biopsy for celiac, thyroid functions, tick-borne disease titers, etc --- all have been negative or normal. She has been concerned about the presence of SVT causing her symptoms at home but during this admission none was seen on monitoring. The patient was seen in consult by Dr. Harpal Reyes, cardiology, and inderal 10mg BID along with 30-day event monitor was advised. Despite the history of nausea/emesis she had none during this stay and was able to eat/drink without difficulty. I advised that she follow-up with a specialized GI motility clinic - probably at [facility] - as well as close follow-up with her PCP and cardiology (Dr. Reyes). Discharge exam - gen - WD, WN, NAD, a/o x 3 mouth - MMM heart - RRR, s1, s2, no murmur lungs - CTA b/l abd - soft, NT, ND, BS+, no HSM ext - no edema psych - a/o x 3, slightly anxious affect Hansel Wise MD
--- NOTE | 2018-09-06 17:14 | Hospitalist Progress Note ---
Date of Service September 06, 2018 Assessment & Plan (1) Near syncope: - Was admitted from 08/29-09/05 for ?PSVT prior to arrival; discharged to home and had near syncopal episode while leaving hospital. - Cardiac work up, including recent TTE and troponins all negative; CTA negative in the ER. - Received IV fluids at 125 cc/hr on admission, now discontinued. - No further episodes of syncope during this admission. (2) Tachycardia: - Reported tachycardia during pre-syncope episode and palpitations. - Has remain rate controlled on ekg monitor. - Ambulated with patient in hallway, no significant rise in HR noted. (3) PSVT (paroxysmal supraventricular tachycardia): - Pt. reported she developed ?SVT during EMS transport and was given an unknown medication. - Echo during last admission negative for acute abnormalities. - No abnormalities noted over previous 7 day admission; telemetry has been NSR during last 24 hours. - Cardiology consulted during last admission and re-consulted during this admission. - Will need 30 day monitor following discharge and possible stress test in future. (4) Shortness of breath: - CTA was negative in ER. - Now resolved. (5) Numbness and tingling of both lower extremities: - Unclear etiology; developed recurrent symptoms during near syncopal episode. - MRI brain on 08/29 was negative. - Discussed with neurology during previous admission, demyelinating disease is very unlikely. - [facility] [place] concerned for neuromyelitis optica, but is unlikely due to lack of visual symptoms. (6) Elevated LFTs: - LFTs now trending down overall. - GI consulted during previous admission, appreciate input. - Acute hepatitis panel, SAMUEL, CMV, EBV, LKM negative. - Has had extensive work up with GI (EGD, GES, multiple CT scans) in past at outside hospitals, testing was all negative. - Will need to follow up with GI as outpt for further work up. (7) Unintentional weight loss of 10% body weight within 6 months: - Lost >50 pounds since June 2018; lost 5 lbs during recent 7 day admission. - SAMUEL, ANCA, EBV, CMV, Coxsackie, Lyme virus panel all negative; Ehrlichiosis and anaplasmosis negative. - Continue Remeron, Scop patch as prescribed. Zofran prn nausea/vomiting. - Nutrition has been consulted on patient. - Will need to follow up with PCP to discuss. - Encourage regular diet with supplements at least 3 times daily. (8) DVT prophylaxis: - Encouraged ambulation. Dispo: Will continue to monitor, discharge likely tomorrow 09/07/18. Subjective Patient was admitted for a near syncopal episode on 09/05/18 following discharge from the hospital. Pt. has had significant weight loss over the last few months, ~50 pounds. States she remembers the exact day she started losing weight, "June 28". Has continued to lose weight despite continuation of oral intake. Has been evaluated at [facility] followed by transfer to [facility] in [place]. Procedures and imaging have been negative for a source. She presented to [facility] for ?SVT -- telemetry during 7 day admission showed no evidence of arrhythmias. Was also evaluated by GI and cardiology during this admission. Neurology, Dr. Staples, also curbsided. She was discharged to home on 09/05 in the setting of a negative work up. Pt. was walking past the gift shop and developed dizziness, palpitations. She felt lightheaded; [facility] staff assisted her and she sat in a wheelchair. Pt. denies LOC or injury to head/other areas of body. She was transferred to the ER. Planned to discharge from ER but pt. stated "I couldn't walk down there". She was subsequently transferred up to the floor and started "walking again without any problems". This morning, pt. denies palpitations, dizziness, ongoing near syncope episodes, chest pain. ekg monitor has shown NSR over last 24 hours. She walked in dawson with nurse, did not have any issues. Cardiology consulted. Review of Systems All systems reviewed & are unremarkable except as noted in HPI & below Constitutional: no fever, no chills and no weakness Respiratory: no cough and no dyspnea Cardiovascular: + palpitations and + lightheadedness; no chest pain, no syncope and no edema Gastrointestinal: no abdominal pain, no nausea and no constipation Genitourinary (Female): no difficulty urinating Musculoskeletal: no joint pain Allergy / Immunological: no rash Physical Exam Vital Signs (Past 24 Hours): Last Vital Signs Temp 36.5 C 09/06/18 15:47 Pulse 82 09/06/18 16:04 Resp 18 09/06/18 15:47 BP 122/83 09/06/18 15:47 Pulse Ox 100 09/06/18 15:47 Physical Exam: General: Anxious young female, mild distress. HEENT: NC/AT; PERRLA with EOMI; [place] conjunctiva, MMM. Neck: Supple and nontender Cardiac: RRR Lungs: CTA bilaterally; No rhonchi, wheezing, or rales Abdomen: Bowel normoactive X 4; Nontender to palpation Extremities: Warm. No edema present Neuro: No focal weakness Skin: No rash Results & Data Laboratory Results 09/06/18 09/06/18 09/05/18 Range/Units 05:19 05:19 16:57 Sodium 139 (136-145) mmol/L Potassium 3.6 (3.5-5.1) mmol/L Chloride 108 H (98-107) mmol/L Carbon Dioxide 26 (21-32) mmol/L Anion Gap 5.0 (3-11) BUN 4 L (7-18) mg/dl Creatinine 0.57 L (0.6-1.2) mg/dl Est Cr Clr Drug Dosing 156.2 ml/min Est GFR ( Amer) 143.2 Est GFR (Non-Af Amer) 123.5 BUN/Creatinine Ratio 7.3 L (10-20) Glucose 78 (70-99) mg/dl Calcium 8.0 L (8.5-10.1) mg/dl Magnesium (1.8-2.4) mg/dl Troponin I (0-0.045) ng/ml TSH (0.300-4.500) uIu/ml Free T4 1.30 (0.8-1.6) ng/dl Total T3 1.07 (0.60-1.81) ng/ml Specimen Hemolysis 09/05/18 Range/Units 16:57 Sodium (136-145) mmol/L Potassium (3.5-5.1) mmol/L Chloride (98-107) mmol/L Carbon Dioxide (21-32) mmol/L Anion Gap (3-11) BUN (7-18) mg/dl Creatinine (0.6-1.2) mg/dl Est Cr Clr Drug Dosing ml/min Est GFR ( Amer) Est GFR (Non-Af Amer) BUN/Creatinine Ratio (10-20) Glucose (70-99) mg/dl Calcium (8.5-10.1) mg/dl Magnesium 2.2 (1.8-2.4) mg/dl Troponin I < 0.015 (0-0.045) ng/ml TSH 0.740 (0.300-4.500) uIu/ml Free T4 (0.8-1.6) ng/dl Total T3 (0.60-1.81) ng/ml Specimen Hemolysis
--- NOTE | 2018-09-06 18:08 | Hospitalist Progress Note ---
Date of Service September 06, 2018 Assessment & Plan (1) Near syncope: - Was admitted from 08/29-09/05 for ?PSVT prior to arrival; discharged to home and had near syncopal episode while leaving hospital. - Cardiac work up, including recent TTE and troponins all negative; CTA negative in the ER. - Received IV fluids at 125 cc/hr on admission, now discontinued. - No further episodes of syncope during this admission. (2) Tachycardia: - Reported tachycardia during pre-syncope episode and palpitations. - Has remain rate controlled on environmental monitoring technician. - Ambulated with patient in hallway, no significant rise in HR noted. - Will start propanolol 10 mg BID per cardiology recs. (3) PSVT (paroxysmal supraventricular tachycardia): - Pt. reported she developed ?SVT during EMS transport and was given an unknown medication. - Echo during last admission negative for acute abnormalities. - No abnormalities noted over previous 7 day admission; telemetry has been NSR during last 24 hours. - Cardiology consulted during last admission and re-consulted during this admission. - Will need 30 day monitor following discharge and possible stress test in future. (4) Shortness of breath: - CTA was negative in ER. - Now resolved. (5) Numbness and tingling of both lower extremities: - Unclear etiology; developed recurrent symptoms during near syncopal episode. - MRI brain on 08/29 was negative. - Discussed with neurology during previous admission, demyelinating disease is very unlikely. - [facility] [place] concerned for neuromyelitis optica, but is unlikely due to lack of visual symptoms. (6) Elevated LFTs: - LFTs now trending down overall. - GI consulted during previous admission, appreciate input. - Acute hepatitis panel, SAMUEL, CMV, EBV, LKM negative. - Has had extensive work up with GI (EGD, GES, multiple CT scans) in past at outside hospitals, testing was all negative. - Will need to follow up with GI as outpt for further work up. (7) Unintentional weight loss of 10% body weight within 6 months: - Lost >50 pounds since June 2018; lost 5 lbs during recent 7 day admission. - SAMUEL, ANCA, EBV, CMV, Coxsackie, Lyme virus panel all negative; Ehrlichiosis and anaplasmosis negative. - Continue Remeron, Scop patch as prescribed. Zofran prn nausea/vomiting. - Nutrition has been consulted on patient. - Will need to follow up with PCP to discuss. - Encourage regular diet with supplements at least 3 times daily. (8) DVT prophylaxis: - Encouraged ambulation. Dispo: Will continue to monitor, discharge likely tomorrow 09/07/18. Supervising Physician Co-Signing Physician Notes Attending Attestation - Pt seen/examined, chart reviewed in detail, and care plan d/w PA Kylah Ivey. I agree w/ the oneill components of her documentation. During my visit the pt was resting comfortably. Denied any complaints. Eating/drinking ok. No nausea/emesis. She asks multiple questions about her prior work-ups, plan of care, etc. exam - gen - WD, WN, female in NAD psych - no significant anxiety all lab testing reviewed outside records from [facility] reviewed EGD results from 08/27 reviewed; of note, bx of duodenum and stomach negative; no celiac TSH, cortisol, MRI brain, CT chest/abd/pelvis - all normal A/P: 1. ?SVT - agree w/ low-dose inderal and 30-day event monitor. 2. nausea, GI complaints - etiology uncertain; motility disorder? Consider referral back to motility clinic at [facility] [place]. 3. near-syncope - variation of POTS? previous cortisol level wnl. observe overnight d/c tomorrow if stable questions answered Hansel Wise MD Subjective Pt. was admitted from 08/29-09/05 for SVT. She did have any documented episodes of SVT on tele throughout admission. Pt. was discharged to home on 09/05/18. She has a pre-syncopal episode by the gift shop during her walk out of the hospital. Pt. states she developed dizziness, palpitations. [facility] brought a wheelchair and placed her in chair. She denies LOC or head injury. Was transported to ER. Planned to discharge to home from ER but pt. reported that she could not walk. After being transported to the floor, pt. was able to ambulate without difficulty. She has remained in NSR on monitor. Cardiology evaluated patient today; will start propanolol 10 mg BID. Monitor overnight on telemetry, discharge to home likely tomorrow. Review of Systems All systems reviewed & are unremarkable except as noted in HPI & below Constitutional: no fever, no chills and no weakness Respiratory: no cough and no dyspnea Cardiovascular: + palpitations and + lightheadedness; no chest pain, no syncope and no edema Gastrointestinal: no abdominal pain, no nausea and no constipation Genitourinary (Female): no difficulty urinating Allergy / Immunological: no rash Physical Exam Vital Signs (Past 24 Hours): Last Vital Signs Temp 36.5 C 09/06/18 15:47 Pulse 82 09/06/18 16:04 Resp 18 09/06/18 15:47 BP 122/83 09/06/18 15:47 Pulse Ox 100 09/06/18 15:47 Physical Exam: General: Resting comfortably in no apparent distress; A&OX3 HEENT: young female, in no distress. Neck: Supple and nontender; No JVD Cardiac: RRR w/o murmurs, gallops or rubs Lungs: CTA bilaterally; No rhonchi, wheezing, or rales Abdomen: Bowel normoactive X 4; Nontender to palpation Extremities: Warm. No edema present Neuro: No focal weakness Skin: No rash Results & Data Laboratory Results 09/06/18 09/06/18 09/05/18 Range/Units 05:19 05:19 16:57 Sodium 139 (136-145) mmol/L Potassium 3.6 (3.5-5.1) mmol/L Chloride 108 H (98-107) mmol/L Carbon Dioxide 26 (21-32) mmol/L Anion Gap 5.0 (3-11) BUN 4 L (7-18) mg/dl Creatinine 0.57 L (0.6-1.2) mg/dl Est Cr Clr Drug Dosing 156.2 ml/min Est GFR ( Amer) 143.2 Est GFR (Non-Af Amer) 123.5 BUN/Creatinine Ratio 7.3 L (10-20) Glucose 78 (70-99) mg/dl Calcium 8.0 L (8.5-10.1) mg/dl Free T4 1.30 (0.8-1.6) ng/dl Total T3 1.07 (0.60-1.81) ng/ml
--- NOTE | 2018-09-06 18:21 | Cardiology Progress Note ---
Date of Service September 06, 2018 Assessment & Plan (1) Tachycardia: The etiology of the patient's tachycardia is still unclear. While she was reported to have heart rates as high as 140 beats per minute when evaluated in the emergency room her EKG documented a heart rate of 115. All of her telemetry and EKGs suggest a sinus mechanism. She was ambulated around the barnhart today and did not have any notable arrhythmia. During the interview today we could not discern any particular situation, position or activity which reliably reproduces her symptoms. In the past she was on metoprolol with some improvement in her symptoms. Eventually she reported some side effects from the medication and it was discontinued. I think would be reasonable to provide her with some propranolol for symptom relief. At this point, no specific arrhythmia has been identified. I think it is highly likely that this represents a tachycardia responsive to metabolic demands. She has been very sedentary in even bed-bound for an extended period recently. Additionally, she may have an element of anxiety or even panic attacks given the associated symptoms. I do not feel there is any role for additional testing such as stress testing or tilt testing. Do not believe she is a good candidate for any invasive testing currently. I believe it is safe for her to be discharged. Subjective This afternoon the patient claims to be feeling well. She has ambulated around the barnhart in back in 4 to the bathroom with only minimal symptoms of dizziness. She did not experience her severe tachycardia since readmission. Yesterday, at the time of discharge she did experience a sense of tingling in her finger tips, mild dizziness and palpitations which prompted urgent return to the emergency room. Physical Exam Vital Signs (Past 24 Hours): Last Vital Signs Temp 36.5 C 09/06/18 15:47 Pulse 82 09/06/18 16:04 Resp 18 09/06/18 15:47 BP 122/83 09/06/18 15:47 Pulse Ox 100 09/06/18 15:47 Physical Exam: She is alert and oriented x3. Mood affect appear normal. She answered all questions appropriately. HEENT: Sclerae are anicteric. Pupils are equal and reactive to light and accommodation. Extraocular movements were intact. Neuro: Cranial nerves intact Neck: Examination of the submandibular region did not reveal any significant lymphadenopathy. There was no evidence of jugular venous distention. The thyroid was not enlarged. Extremities: There is no evidence cyanosis or clubbing. There was no evidence of significant peripheral edema bilaterally. Skin: There are no rashes noted on examination today. Results & Data Laboratory Results Abnormal Lab Results 09/05/18 09/06/18 09/06/18 16:57 05:19 05:19 Sodium 139 Potassium 3.6 Chloride 108 H Carbon Dioxide 26 Anion Gap 5.0 BUN 4 L Creatinine 0.57 L Est Cr Clr Drug Dosing 156.2 Est GFR ( Amer) 143.2 Est GFR (Non-Af Amer) 123.5 BUN/Creatinine Ratio 7.3 L Glucose 78 Calcium 8.0 L Free T4 1.30 Total T3 1.07 ECG Additional Comments: Telemetry revealed only sinus rhythm and occasional episodes of sinus tachycardia.
[2018-09-06] MEDS ORDERED: ALUMINUM/MAGNESIUM SUSP 18 ML, LIDOCAINE HCL VISCOUS 2% 6 ML, BARCODE IDENTIFIER 1 EA PO ONE (20:00)
[2018-09-06] MEDS: SCOPOLAMINE 1.5 MG TDSY TD SCH (21:19)
[2018-09-06] MEDS: PROPRANOLOL HCL 10 MG TAB PO SCH (21:23)
[2018-09-07] MEDS: CHECK SCOPOLAMINE PATCH PLACEMENT SCH ×2 (00:28→08:33)
[2018-09-07 06:49] LABS: Hematocrit (blood only) 42.5 % (37-47); Hemoglobin 13.9 g/dL (12.0-16.0); Mean Corpuscular Hgb Conc 32.7 g/dL (32-36); Mean Corpuscular Volume 92.4 fL (80-100); Mean Platelet Volume 11.6 fL (7.4-10.4); Platelet Count 204 K/uL (130-400); RDW Coefficient of Variation 14.4 % (11.5-14.5); RDW Standard Deviation 48.5 fL (36.4-46.3)
[2018-09-07 06:58] VITALS: BP 108/68; TEMP 98.2; O2SAT 95
[2018-09-07 07:31] LABS: Albumin Level 3.3 gm/dl (3.4-5.0); Calcium 8.6 mg/dl (8.5-10.1); Creatinine Clr Calc Pharmacy 138.9 ml/min; Est GFR (African American) 137.1; Est GFR (Non-African American) 118.3; Magnesium 2.3 mg/dl (1.8-2.4); Potassium 3.6 mmol/L (3.5-5.1)
[2018-09-07 07:33] LABS: Albumin Globulin Ratio 0.9 (0.9-2); Bilirubin,Total 0.6 mg/dl (0.2-1); Globulin 3.5 gm/dl (2.5-4.0); Phosphorus 3.5 mg/dl (2.5-4.9); Total Protein 6.8 gm/dl (6.4-8.2)
[2018-09-07] MEDS: PANTOprazole 40 MG TAB PO SCH (08:33)
[2018-09-07] MEDS: MULTIVITAMIN TAB PO SCH (08:34)
[2018-09-07] MEDS: PROPRANOLOL HCL 10 MG TAB PO SCH (08:34)
[2018-09-07] MEDS: MIRTAZAPINE TAB 15 MG TAB PO SCH (08:36)
[2018-09-07 10:50] VITALS: PULSE 89
--- NOTE | 2018-09-07 12:27 | Discharge Summary ---
Date of Service September 07, 2018 Admission HPI Per Admitting Provider Patient is a 33yo female with a plethora of complaints to include 50# unintentional weight loss in the last 2 months, nausea and decreased PO intake, PSVT. ALso with abnormal LFTs, numbness/tingling of extremities, hypokalemia, weakness. Patient was initially worked up at [facility] as well as [place] with no definitive diagnosis given. She was started on a scopolamine patch, protonix, mirtazapine and zofran to help manage her chronic nausea. It seems that some rheumatologic studies as well as erlichiosis/anaplasmosis testing are still pending from [facility] as well as some Neurological studies and CSF studies from [facility] (Patient was being worked up for NMO, possible demyelinating diseases). Patient was discharged to home today with followup arranged. On her way out of the hospital she began to feel tingling and weakness in her arms and legs as well as feeling weak, dizzy and presyncopal with palpitations. She was transported to the ER. Heart rate reportedly 140 bpm. Presently she is without complaints. No events on monitor. She is frustrated with prolonged workup and no answers. Admission Exam Per Admitting Provider General: patient resting comfortably, NAD, non-toxic in appearance, AA&O x 4 Skin: warm, dry, intact, no rashes or lesions HEENT: NC/AT, PERRL, EOMI, anicteric sclera, conjunctiva without injection, e xternal ear normal to inspection and nontender, nares patent, moist mucus membranes, dentition intact, no oropharyngeal lesions, neck supple, trachea midline, no LAD, no thyromegaly, no JVD Heart: +S1/S2, regular, no m/r/g Lungs: equal air entry bilaterally, no rales/rhonchi/wheezes Abd: +BS, soft, NT/ND, no masses/organomegaly/ascites Ext: warm, 2+ pulses in UE/LE bilaterally, no clubbing/cyanosis or edema Neuro: nonfocal, patient AA&O x 4, speech intact, no facial droop, moving all extremities on command with equal strength 5/5 Principal Diagnosis Tachycardia, Near Syncope Discharge Exam General: Anxious young female, mild distress. HEENT: NC/AT; PERRLA with EOMI; [place] conjunctiva, MMM. Neck: Supple and nontender Cardiac: RRR Lungs: CTA bilaterally; No rhonchi, wheezing, or rales Abdomen: Bowel normoactive X 4; Nontender to palpation Extremities: Warm. No edema present Neuro: No focal weakness Skin: No rash Discharge Data Allergies Allergy/AdvReac Type Severity Reaction Status Date / Time bee venom protein (honey bee) Allergy Intermediate FACE SWELLS Verified 09/05/18 16:31 Penicillins Allergy Intermediate Rash Verified 09/05/18 16:31 aspirin AdvReac Severe Vomiting Verified 09/05/18 16:31 morphine AdvReac Intermediate Vomiting Verified 09/05/18 16:31 prochlorperazine AdvReac Intermediate FEEL LIKE Verified 09/05/18 16:31 [From Compazine] "OUT OF MY MIND". BRAZIL NUT Allergy Severe THROAT Uncoded 09/05/18 16:31 SWELLS SHUT Consultations 09/05/18 17:36 ED Decision to Admit Stat 09/05/18 20:29 Consult Cardiology Routine Ordered Studies 09/05/18 16:18 CT angio chest PE protocol Stat Hospital Course (1) Near syncope: - Was admitted from 08/29-09/05 for ?PSVT prior to arrival; discharged to home and had near syncopal episode while leaving hospital. - Cardiac work up, including recent TTE and troponins all negative; CTA negative in the ER. - Received IV fluids at 125 cc/hr on admission, now discontinued. - No further episodes of syncope; stable for discharge on 09/07/18. (2) Tachycardia: - Reported tachycardia during pre-syncope episode and palpitations. - Has remain rate controlled on remote operations producer. - Ambulated with patient in hallway on 09/06/18, no significant rise in HR noted. - Started propanolol 10 mg BID per cardiology recs. (3) PSVT (paroxysmal supraventricular tachycardia): - Pt. reported she developed ?SVT during EMS transport and was given an unknown medication. - Echo during last admission negative for acute abnormalities. - No abnormalities noted over previous 7 day admission; telemetry has been NSR during this admission. - Cardiology consulted during last admission and re-consulted during this admission. - Will likely need 30 day monitor following discharge. (4) Shortness of breath: - CTA was negative in ER. - Now resolved. (5) Numbness and tingling of both lower extremities: - Unclear etiology; developed recurrent symptoms during near syncopal episode. - MRI brain on 08/29 was negative. - Discussed with neurology during previous admission, demyelinating disease is very unlikely. - [facility] [place] concerned for neuromyelitis optica, but is unlikely due to lack of visual symptoms. (6) Elevated LFTs: - LFTs now trending down. - GI consulted during previous admission, appreciate input. - Acute hepatitis panel, SAMUEL, CMV, EBV, LKM negative. - Has had extensive work up with GI (EGD, GES, multiple CT scans) in past at outside hospitals, testing was all negative. - Will need to follow up with GI as outpt. (7) Unintentional weight loss of 10% body weight within 6 months: - Lost >50 pounds since June 2018; lost 5 lbs during recent 7 day admission. - SAMUEL, ANCA, EBV, CMV, Coxsackie, Lyme virus panel all negative; Ehrlichiosis and anaplasmosis negative. - Continue Remeron, Scop patch as prescribed. Zofran prn nausea/vomiting. - Nutrition has been consulted on patient. - Will need to follow up with PCP to discuss. - Encourage regular diet with supplements at least 3 times daily. - Recommend to follow up with the GI mobility clinic as outpatient. (8) DVT prophylaxis: - Encouraged ambulation. Pt. was stable for discharge to home on 09/07/2018. Will need close follow up with cardiology. Total Time Total Time Spent Total Time Spent (In Minutes): >30 minutes Total Time Includes: Examination of the Patient, Discharge Planning, Medication Reconciliation, Communication With Other Providers and Other Discharge Plan Discharge Items Patient Disposition: Home - Self-Care Reason For Visit: TACHYCARDIA Discharge Diagnosis: Tachycardia Condition: Fair Discharge Goals: Decrease discomfort, Diagnostic testing, Improve disease control, Improve function, Increase independence, Improve nutritional status, Prevent disease and Therapeutic intervention Activity: Resume your previous activity Non-emergency contact: Primary Care Provider and Creative Resource Manager Call non-emergency contact if: you have any medication questions, your symptoms worsen, your pain is concerning for you and you have a fever Follow-up/Referrals: Luigi Joaquin MD [Primary Care Provider] - Diet: Regular Addtl Provider Instructions: 1. Near syncope/Tachycardia * Please follow up with cardiology in the next 1-2 weeks to discuss a 30 day holter monitor. * Please drink plenty of fluids to avoid dehydration -- at least 8-10 glasses of water per day. * Please continue Propanolol 10 mg twice daily per cardiology recs. * Prescription for Propanolol was sent to your pharmacy. 2. Elevated LFTs * LFTs are now improved overall. * Please follow up with GI in the outpatient clinic to discuss further work up. 3. Please follow up with your primary care provider in 7-10 days to discuss your recent hospitalizations. Prescriptions: New propranolol 10 mg Tablet 10 mg PO BID 30 Days Qty: 60 RF: 1 Continued multivitamin Tablet 1 tab PO DAILY RF: 0 pantoprazole 40 mg tablet,delayed release (DR/EC) 40 mg PO BID RF: 0 mirtazapine 15 mg tablet 15 mg PO DAILY RF: 0 scopolamine base 1 mg over 3 days patch 3 day 1 patch topical DIRECTED RF: 0 ondansetron 4 mg Tablet,Disintegrating 4 mg PO QID PRN (Reason: Nausea) RF: 0 Stand-Alone Forms: Call Back Authorization, [facility] Discharge Orders: Discharge Order (Routine); Ordered 09/07/18 Ordered By: Kylah Ivey Admission Data Admit Date/Time: 09/05/18 19:13 Attending Provider: Hansel Wise Admit Provider: Eli Laws Primary Care Provider: Luigi Joaquin V. Other Providers: Eli Laws ; Gino Reyes Service: Telemetry Other Interventions: Discharge Summary Assessment (RN) Last Done: 09/07/18 10:48 Pending Studies at Discharge: No DC Date/Time DO NOT enter until pt leaves facility: 09/07/18 11:00 Supervising Physician Co-Signing Physician Notes Attending Attestation & Discharge Note: Please see my other attestation from 09/06/18 discharge summary. Pt seen/examined, chart reviewed, care plan d/w PA Kylah Ivey. I agree w/ the oneill components of her discharge summary. Briefly - 33yo female with multiple hospitalizations in the last 1-2 months at several hospitals with extensive work-ups for various complaints including nausea, emesis, palpitations, tachycardia, presyncope, numbness/tingling, etc. Just had 7-day stay at [facility] for those same complaints. Extensive w/u negative during that admission. Telemetry did not note any dysrhythmia or SVT. Readmitted shortly after hospital discharge due to presyncope. Placed on monitor - this was normal during the stay. Seen by cardiology, Dr. Harpal Reyes, and 10mg BID of inderal was recommended. She was observed after the inderal was started and had no side effects and monitoring was stable while on the inderal. A 30-day event monitor will be set up after discharge to try and capture some of the spells she has mentioned (she has been worried she is suffering from SVT spells). Despite the history of GI intolerance, nausea, etc she had no GI issues during this brief stay; she was able to eat/drink without difficulty. Discharge exam: gen - NAD, WD, WN, a/o x 3 mouth - MMM heart - RRR, s1, s2, no murmur lungs - CTA b/l abd - soft, NT, ND, BS+, no HSM ext - no edema neuro - no tremor, no focal deficits I recommended she follow-up with a specialized GI motility clinic, likely with [facility]. I also advised close f/u with her PCP and Dr. Reyes from cardiology. With respect to the weight loss - again she has had CT chest/abd/pelvis without pathology. Recent EGD with gastric/duodenal bx's were normal. PCP follow-up advised. Hansel Wise MD
== END 2018-09-07 11:00 | disposition home or self-care (01) ==
LOC: ED 15:43 → 2N 15:43 → SUATTDRO 19:13 → 2N 19:33